=== PATIENT | female | born 1970 | race Caucasian/White ===

== ENCOUNTER 2017-01-15 01:44 | Emergency (ER) | payer SELFPAY ==
[~2017-01-15] VITALS: Ht 165.1 cm; Wt 64.6 kg
[~2017-01-15 01:44] MED LIST: AUGM875T PO; LORA10TA PO
[2017-01-15 01:52] VITALS: BP 131/90; PULSE 80; RESP 18; TEMP 97.9; O2SAT 98
[2017-01-15] MEDS ORDERED: SODIUM CHLOR 0.9% 1000 ML INJ 1,000 ML IV SCH (02:17)
--- NOTE | 2017-01-15 02:22 | PD ---
HPI Chief Complaint: GI Complaint Time Seen by Provider: 02:17 Travel History International Travel<30 days: No Contact w/Intl Traveler<30days: No Traveled to known affect area: No History of Present Illness HPI The patient is a 46-year-old female that complains of midline epigastric pain since 10 PM tonight. The pain radiates to the midline back and she denies any fever. She denies any melanotic or bloody stools. She denies any ulcer history. She states she took a Prilosec tonight. She does have a history of reflux esophagitis. She also has a history of lupus. [facility] Past Medical History Arthritis: Yes Autoimmune Disease: Yes (LUPUS) Cardiovascular Problems: Yes (RHEUMATIC FEVER) Diminished Hearing: No Tetanus Vaccination: < 5 Years Influenza Vaccination: No ?: Unknown LMP: One week ago : 5 Para: 4 Miscarriage: 1 Past Surgical History Oral Surgery: Yes (GUM SURGERY) Social History Alcohol Use: No Tobacco Use: Yes (4-6 cigarettes per day ) Substance Use: No Allergies-Medications (Allergen,Severity, Reaction): Coded Allergies: No Known Allergies (Verified , 12/27/15) Reported Meds & Prescriptions Reported Meds & Active Scripts Active Review of Systems Except as stated in HPI: all other systems reviewed are Neg Physical Exam Narrative GENERAL: The patient is alert, oriented 3 in moderate apparent distress with her midline epigastric discomfort. Her vital signs are normal. SKIN: Warm and dry. HEAD: Atraumatic. Normocephalic. EYES: Pupils equal and round. No scleral icterus. No injection or drainage. ENT: No nasal bleeding or discharge. Mucous membranes pink and moist. NECK: Trachea midline. No JVD. CARDIOVASCULAR: Regular rate and rhythm. No murmur appreciated. RESPIRATORY: No accessory muscle use. Clear to auscultation. Breath sounds equal bilaterally. GASTROINTESTINAL: Abdomen soft, with tenderness to direct palpation in the midline epigastrium, nondistended. Hepatic and splenic margins not palpable. No guarding or rebound is present. MUSCULOSKELETAL: No obvious deformities. No clubbing. No cyanosis. No edema. NEUROLOGICAL: Awake and alert. No obvious cranial nerve deficits. Motor grossly within normal limits. Normal speech. PSYCHIATRIC: Appropriate mood and affect; insight and judgment normal. Data Data Last Documented VS Vital Signs Date Time Temp Pulse Resp B/P Pulse Ox O2 Delivery O2 Flow Rate FiO2 2/25/17 01:52 97.9 80 18 131/90 98 Orders Complete Blood Count With Diff (01/15/17 02:17) Comprehensive Metabolic Panel (01/15/17 02:17) Lipase (01/15/17 02:17) Pantoprazole Inj (Protonix Inj) (01/15/17 02:30) Sodium Chlor 0.9% 1000 Ml Inj (Ns 1000 M (01/15/17 02:17) Sodium Chloride 0.9% Flush (Ns Flush) (01/15/17 02:30) Famotidine Inj (Pepcid Inj) (01/15/17 02:30) Al-Mag Hy-Si 40-40-4 Mg/Ml Liq (Mag-Al P (01/15/17 02:30) Lidocaine 2% Viscous (Xylocaine 2% Visco (01/15/17 02:45) Labs Laboratory Tests Test 01/15/17 02:26 White Blood Count 9.8 TH/MM3 Red Blood Count 4.46 MIL/MM3 Hemoglobin 13.7 GM/DL Hematocrit 40.4 % Mean Corpuscular Volume 90.7 FL Mean Corpuscular Hemoglobin 30.7 PG Mean Corpuscular Hemoglobin 33.9 % Concent Red Cell Distribution Width 12.6 % Platelet Count 252 TH/MM3 Mean Platelet Volume 9.1 FL Neutrophils (%) (Auto) 75.0 % Lymphocytes (%) (Auto) 17.8 % Monocytes (%) (Auto) 4.9 % Eosinophils (%) (Auto) 1.6 % Basophils (%) (Auto) 0.7 % Neutrophils # (Auto) 7.3 TH/MM3 Lymphocytes # (Auto) 1.7 TH/MM3 Monocytes # (Auto) 0.5 TH/MM3 Eosinophils # (Auto) 0.2 TH/MM3 Basophils # (Auto) 0.1 TH/MM3 CBC Comment DIFF FINAL Differential Comment Sodium Level 139 MEQ/L Potassium Level 3.8 MEQ/L Chloride Level 107 MEQ/L Carbon Dioxide Level 22.4 MEQ/L Anion Gap 10 MEQ/L Blood Urea Nitrogen 12 MG/DL Creatinine 0.58 MG/DL Estimat Glomerular Filtration 111 ML/MIN Rate Random Glucose 114 MG/DL Calcium Level 8.7 MG/DL Total Bilirubin 0.3 MG/DL Aspartate Amino Transf 12 U/L (AST/SGOT) Alanine Aminotransferase 21 U/L (ALT/SGPT) Alkaline Phosphatase 81 U/L Total Protein 6.6 GM/DL Albumin 3.4 GM/DL Lipase 174 U/L MDM Medical Decision Making Medical Screen Exam Complete: Yes Emergency Medical Condition: Yes Medical Record Reviewed: Yes Interpretation(s) The CBC is normal. The complete metabolic profile is normal. The lipase is normal. Differential Diagnosis Ulcer pain, reflux esophagitis, anemia, pancreatitis Narrative Course The patient has reflux esophagitis. She got fairly significant relief almost immediately with a GI cocktail. Plan: The patient will take Prilosec which she already has at home, liquid Maalox/Mylanta and is given a prescription for Phenergan for nausea. Diagnosis Primary Impression: Reflux esophagitis Additional Instructions: As we discussed, take Phenergan regularly, every 6 hours for nausea. After several days you can use Phenergan as an as needed drugs. Use liquid Maalox/ Mylanta and not Tums for reasons which we discussed. For the first few days take Prilosec twice daily and then back off to once a day. Follow-up with your primary care physician next week. Med/Other Pt SpecificInfo: Prescription(s) given Scripts Promethazine (Phenergan)25 Mg Tab25 Mg PO ONCE #1 TAB Ref 0 Prov:Carlos Mariscal MD 01/15/17 Disposition: 01 DISCHARGE HOME Condition: Stable Carlos Mariscal MD Jan 15, 2017 02:22
[2017-01-15] MEDS ORDERED: SODIUM CHLORIDE 0.9% FLUSH 5 ML FLUSH IVF PRN (02:30)
[2017-01-15] MEDS ORDERED: FAMOTIDINE 20 MG/2 ML VIAL IV PUSH ONE (02:30)
[2017-01-15] MEDS ORDERED: PANTOPRAZOLE SODIUM 40 MG VIAL IVP ONE (02:30)
[2017-01-15] MEDS ORDERED: ALUMINUM/MAGNESIUM/SIMETH 30 ML CUP PO ONE (02:30)
[2017-01-15 02:37] LABS: AUTOMATED NEUTROPHIL # 7.3 TH/MM3 (1.8-7.7); BASOPHIL # 0.1 TH/MM3 (0-0.2); BASOPHIL % 0.7 % (0.0-2.0); EOSINOPHIL # 0.2 TH/MM3 (0-0.4); EOSINOPHIL % 1.6 % (0.0-4.0); HEMATOCRIT 40.4 % (35.0-46.0); HEMO FLAGS DIFF FINAL; LYMPH % 17.8 % (9.0-44.0); LYMPHOCYTE # 1.7 TH/MM3 (1.0-4.8); MEAN CELL VOLUME 90.7 FL (80.0-100.0); MEAN CORPUSCULAR HEMOGLOBIN 30.7 PG (27.0-34.0); MEAN CORPUSCULAR HGB CONC 33.9 % (32.0-36.0); MONO % 4.9 % (0.0-8.0); PLATELET COUNT 252 TH/MM3 (150-450); RED BLOOD COUNT 4.46 MIL/MM3 (4.00-5.30); RED CELL DISTRIBUTION WIDTH 12.6 % (11.6-17.2); WHITE BLOOD COUNT 9.8 TH/MM3 (4.0-11.0)
[2017-01-15 02:44] LABS: CHLORIDE 107 MEQ/L (98-107); POTASSIUM 3.8 MEQ/L (3.5-5.1); SODIUM (NA) 139 MEQ/L (136-145)
[2017-01-15 02:45] VITALS: BP 142/88; PULSE 72; RESP 18; O2SAT 97
[2017-01-15] MEDS ORDERED: LIDOCAINE VISCOUS 2% SOLN 15 ML UDC PO ONE (02:45)
[2017-01-15 02:48] LABS: ANION GAP 10 MEQ/L (5-15); BICARBONATE 22.4 MEQ/L (21.0-32.0); BLOOD UREA NITROGEN 12 MG/DL (7-18)
[2017-01-15 02:51] LABS: ALT (GPT) 21 U/L (10-53); AST (GOT) 12 U/L (15-37); GLOMERULAR FILTRATION RATE 111 ML/MIN (>89)
[2017-01-15 02:52] LABS: TOTAL BILIRUBIN ADULT 0.3 MG/DL (0.2-1.0)
[2017-01-15 02:53] LABS: ALKALINE PHOSPHATASE 81 U/L (45-117)
[2017-01-15] MEDS ORDERED: PROM25TA5 PO (03:40)
== END 2017-01-15 04:07 | disposition home or self-care (01) ==
LOC: PHED 01:44
DX: K21.0 Gastro-esophageal reflux disease with esophagitis (principal)
CPT/HCPCS: 80053; 83690; 85025; 96361; 96374; 96375; 99284; C9113; J7030

== ENCOUNTER 2017-02-13 19:34 | Emergency (ER) | payer SELFPAY ==
[~2017-02-13 19:34] MED LIST changes: -AUGM875T PO; -LORA10TA PO; +PROM25TA5 PO
[2017-02-13 19:35] VITALS: BP 143/85; PULSE 95; RESP 16; TEMP 98; O2SAT 98
--- NOTE | 2017-02-15 12:49 | EKG ---
Date Performed: 02/13/2017 Time Performed: 19:54:57 PTAGE: 46 years EKG: Sinus rhythm NORMAL ECG PREVIOUS TRACING : 12/15/2012 18.45 Compared to prior tracing no significant change DOCTOR: Vincent Vargas Interpretating Date/Time 02/15/2017 12:48:08
== END 2017-02-13 20:14 | disposition left against medical advice (07) ==
LOC: NED 19:34
DX: R68.89 Other general symptoms and signs (principal)
CPT/HCPCS: 93005; 99281

== ENCOUNTER 2017-05-31 04:05 | Emergency (ER) | payer SELFPAY ==
[~2017-05-31] VITALS: Ht 165.1 cm; Wt 55.0 kg
[2017-05-31 04:08] VITALS: BP 172/94; PULSE 83; RESP 16; TEMP 97.7; O2SAT 98
[2017-05-31] MEDS ORDERED: VITA250T3 PO (04:18)
[2017-05-31] MEDS ORDERED: PRIL2.5P (04:18)
[2017-05-31 05:17] VITALS: RESP 18; O2SAT 98
--- NOTE | 2017-05-31 05:22 | PD ---
HPI Chief Complaint: Abdominal Pain Time Seen by Provider: 05:04 Travel History International Travel<30 days: No Contact w/Intl Traveler<30days: No Traveled to known affect area: No History of Present Illness HPI The patient is a 47 year old female who presents to the [facility] emergency department with a history of abdominal pain that began approximately 2 hours after eating studies BBQ at 6:30 PM last night. The patient reports that the pain had been constant and in the midepigastric area. She reports that the pain is a sharp and aching sensation. She reports that she has had this pain in the past 4 times previously. She reports that on the first occasion she was seen in the emergency department at [place] and was diagnosed with acid reflux. She reports that since then she did consistently take Prilosec, however this past week she discontinued this. She reports that she also changed her diet and has been eating more helpfully up until last night. She reports that she has a history of lupus and was taking ibuprofen regularly for body pains, however she discontinued this as well. She denies ever having endoscopy or colonoscopy. She reports that associated with this pain for the first time this evening she has had nausea and vomiting 1. She denies having any diarrhea. She last moved her bowels earlier this evening. She denies having any blood in her stool. Shortly after arriving in the emergency department, the patient reports that the pain has begun to resolve. I review systems, the patient denies any recent fevers, cough, congestion, neck pain, chest pain, shortness of breath, urinary symptoms, or neurologic symptoms. [facility] Past Medical History Narrative Medical The patient's past medical history is significant for lupus. She does have prednisone on hand to be taken when necessary with a lupus flare, however she has not had a lupus flare since November, history of rheumatic fever, history of arthritis, history of tobacco use. Arthritis: Yes Autoimmune Disease: Yes (LUPUS) Cardiovascular Problems: Yes (RHEUMATIC FEVER, HEART MURMUR ) Diminished Hearing: No ?: Not : 5 Para: 4 Miscarriage: 1 Past Surgical History Narrative Surgical The patient's past surgical history is significant for gum surgery. Oral Surgery: Yes (GUM SURGERY) Social History Alcohol Use: No Tobacco Use: Yes (4-6 cigarettes per day ) Substance Use: No Allergies-Medications (Allergen,Severity, Reaction): Coded Allergies: No Known Allergies (Verified , 12/27/15) Reported Meds & Prescriptions Reported Meds & Active Scripts Active Reported Prilosec (Omeprazole Magnesium) 2.5 Mg Pow Vitamin C (Ascorbic Acid) 250 Mg Tab 500 Mg PO DAILY Review of Systems Except as stated in HPI: all other systems reviewed are Neg General / Constitutional: No: Fever Eyes: No: Visual changes HENT: No: Headaches Cardiovascular: No: Chest Pain or Discomfort Respiratory: No: Shortness of Breath Gastrointestinal: Positive: Nausea, Vomiting, Abdominal Pain, Indigestion, No : Hematemesis, Hematochezia, Constipation, Changes in Bowel Habits, Loss of Appetite Genitourinary: No: Dysuria Musculoskeletal: No: Pain Skin: No Rash Neurologic: No: Weakness Psychiatric: No: Depression Endocrine: No: Polydipsia Hematologic/Lymphatic: No: Easy Bruising Physical Exam Narrative General: The patient is a well-developed well-nourished female in no acute distress, the pain has resolved just prior to my arriving in the room. Head and Neck exam: Head is normocephalic atraumatic. Eyes: EOMI, pupils are equal round and reactive to light. Nose: Midline septum with pink mucous membranes Mouth: Dentition unremarkable. Moist mucus membranes. Posterior oropharynx is not erythematous. No tonsillar hypertrophy. Uvula midline. Airway patent. Neck: No palpable lymphadenopathy. No nuchal rigidity. No thyromegaly. Cardiovascular: Regular rate and rhythm without murmurs, gallops, or rubs. Lungs: Clear to auscultation bilaterally. No wheezes, rhonchi, or rales. Abdomen: Soft, without tenderness to palpation in all 4 quadrants of the abdomen. No guarding, rebound, or rigidity. Normal bowel sounds are audible. No tenderness on palpation of McBurney's point. Negative [place] sign. Extremities: No clubbing, cyanosis, or edema. 2+ pulses in all 4 extremities. No calf tenderness on palpation. Back: No costovertebral angle tenderness to palpation. Neurologic Exam: Grossly nonfocal. Skin Exam: No rash noted. Intact skin that is warm and dry. Data Data Last Documented VS Vital Signs Date Time Temp Pulse Resp B/P Pulse Ox O2 Delivery O2 Flow Rate FiO2 05/31/17 05:17 18 98 Room Air 05/31/17 04:08 97.7 83 172/94 Orders Electrocardiogram (05/31/17 05:13) Complete Blood Count With Diff (05/31/17 05:13) Comprehensive Metabolic Panel (05/31/17 05:13) Creatine Kinase (Cpk) (05/31/17 05:13) Ckmb (Isoenzyme) Profile (05/31/17 05:13) Troponin I (05/31/17 05:13) Prothrombin Time / Inr (Pt) (05/31/17 05:13) Act Partial Throm Time (Ptt) (05/31/17 05:13) Lipase (05/31/17 05:13) Urinalysis - C+S If Indicated (05/31/17 05:13) Westergren Sedimentation Rate (05/31/17 05:13) Magnesium (Mg) (05/31/17 05:13) Chest, Single Ap (05/31/17 05:13) Iv Access Insert/Monitor (05/31/17 05:13) Ecg Monitoring (05/31/17 05:13) Oximetry (05/31/17 05:13) Ed Urine Pregnancytest Poc (05/31/17 05:13) Us Abdomen Gallbladder (05/31/17 05:24) Labs Laboratory Tests Test 05/31/17 05/31/17 04:30 05:15 White Blood Count 9.6 TH/MM3 Red Blood Count 4.44 MIL/MM3 Hemoglobin 14.0 GM/DL Hematocrit 40.8 % Mean Corpuscular Volume 91.9 FL Mean Corpuscular Hemoglobin 31.7 PG Mean Corpuscular Hemoglobin 34.4 % Concent Red Cell Distribution Width 13.3 % Platelet Count 247 TH/MM3 Mean Platelet Volume 9.8 FL Neutrophils (%) (Auto) 78.9 % Lymphocytes (%) (Auto) 13.5 % Monocytes (%) (Auto) 6.2 % Eosinophils (%) (Auto) 1.0 % Basophils (%) (Auto) 0.4 % Neutrophils # (Auto) 7.6 TH/MM3 Lymphocytes # (Auto) 1.3 TH/MM3 Monocytes # (Auto) 0.6 TH/MM3 Eosinophils # (Auto) 0.1 TH/MM3 Basophils # (Auto) 0.0 TH/MM3 CBC Comment DIFF FINAL Differential Comment Prothrombin Time 10.6 SEC Prothromb Time International 1.0 RATIO Ratio Activated Partial 30.6 SEC Thromboplast Time Sodium Level 138 MEQ/L Potassium Level 3.7 MEQ/L Chloride Level 105 MEQ/L Carbon Dioxide Level 25.2 MEQ/L Anion Gap 8 MEQ/L Blood Urea Nitrogen 13 MG/DL Creatinine 0.61 MG/DL Estimat Glomerular Filtration 105 ML/MIN Rate Random Glucose 92 MG/DL Calcium Level 8.7 MG/DL Magnesium Level 2.0 MG/DL Total Bilirubin 0.3 MG/DL Aspartate Amino Transf 12 U/L (AST/SGOT) Alanine Aminotransferase 17 U/L (ALT/SGPT) Alkaline Phosphatase 86 U/L Total Creatine Kinase 63 U/L Troponin I LESS THAN 0.02 NG/ML Total Protein 7.1 GM/DL Albumin 3.6 GM/DL Lipase 171 U/L Urine Color YELLOW Urine Turbidity HAZY Urine pH 5.5 Urine Specific [place] 1.029 Urine Protein TRACE mg/dL Urine Glucose (UA) NEG mg/dL Urine Ketones NEG mg/dL Urine Occult Blood NEG Urine Nitrite NEG Urine Bilirubin NEG Urine Urobilinogen LESS THAN 2.0 MG/DL Urine Leukocyte Esterase NEG Urine WBC 1 /hpf Urine Squamous Epithelial 7 /hpf Cells Urine Mucus FEW /lpf Microscopic Urinalysis Comment CULT NOT INDICATED MDM Medical Decision Making Medical Screen Exam Complete: Yes Emergency Medical Condition: Yes Medical Record Reviewed: Yes Differential Diagnosis Pancreatitis, versus biliary colic, versus peptic ulcer disease, versus acid reflux. Narrative Course During the course of the patients emergency department visit, the patients history, examination, and differential diagnosis were reviewed with the patient. The patient had IV access obtained and blood work sent for analysis. The patient was placed on a cardiac monitor technician with oximetry and blood pressure monitoring. An ultrasound of the gallbladder has been ordered. The patients laboratory studies were reviewed and remarkable for a white count of 9.6, hemoglobin 14, platelets 247 with 78.9 neutrophils, sedimentation rate is pending, CMP is unremarkable, CPK 63, troponin I less than 0.02, lipase 171. PT 10.6, PTT 30.6, urinalysis unremarkable. The patient refused to have an ECG done as she reports that she does not believe that this is related to her heart. Radiology studies were reviewed and remarkable for a chest x-ray that shows no acute cardiopulmonary disease. An ultrasound of the gallbladder has been ordered. The ultrasound is pending at the conclusion of my shift. The patient's case will be checked out to the oncoming emergency physician to disposition the patient based on the conclusion of her workup. Diagnosis Primary Impression: Intermittent epigastric abdominal pain Nanci Velasquez MD May 31, 2017 05:22
--- NOTE | 2017-05-31 05:36 | RADRPT ---
EXAM DATE/TIME: 05/31/2017 05:10 [facility] COMPARISON: No previous studies available for comparison. INDICATIONS : Chest pain, back pain, vomiting. MEDICAL HISTORY : None. SURGICAL HISTORY : None. ENCOUNTER: Initial ACUITY: 1 day PAIN SCORE: 5/10 LOCATION: Bilateral chest FINDINGS: A single view of the chest demonstrates the lungs to be symmetrically aerated without evidence of mas s, infiltrate or effusion. The cardiomediastinal contours are unremarkable. Osseous structures are intact. CONCLUSION: No evidence of acute cardiopulmonary disease. Tim Corado MD on May 31, 2017 at 5:35 Board Certified Radiologist. This report was verified electronically.
[2017-05-31 06:23] LABS: AUTOMATED NEUTROPHIL # 7.6 TH/MM3 (1.8-7.7); BASOPHIL % 0.4 % (0.0-2.0); EOSINOPHIL # 0.1 TH/MM3 (0-0.4); HEMATOCRIT 40.8 % (35.0-46.0); HEMO FLAGS DIFF FINAL; LYMPH % 13.5 % (9.0-44.0); LYMPHOCYTE # 1.3 TH/MM3 (1.0-4.8); MEAN CELL VOLUME 91.9 FL (80.0-100.0); MEAN CORPUSCULAR HEMOGLOBIN 31.7 PG (27.0-34.0); MEAN CORPUSCULAR HGB CONC 34.4 % (32.0-36.0); MONO % 6.2 % (0.0-8.0); NEUT % 78.9 % (16.0-70.0); PLATELET COUNT 247 TH/MM3 (150-450); RED BLOOD COUNT 4.44 MIL/MM3 (4.00-5.30); RED CELL DISTRIBUTION WIDTH 13.3 % (11.6-17.2); WHITE BLOOD COUNT 9.6 TH/MM3 (4.0-11.0)
[2017-05-31 06:39] LABS: APTT (PATIENT) 30.6 SEC (24.3-30.1); PROTHROMBIN TIME - PATIENT 10.6 SEC (9.8-11.6)
[2017-05-31 06:40] LABS: ALT (GPT) 17 U/L (10-53); ANION GAP 8 MEQ/L (5-15); AST (GOT) 12 U/L (15-37); BICARBONATE 25.2 MEQ/L (21.0-32.0); BLOOD UREA NITROGEN 13 MG/DL (7-18); CHLORIDE 105 MEQ/L (98-107); GLOMERULAR FILTRATION RATE 105 ML/MIN (>89); POTASSIUM 3.7 MEQ/L (3.5-5.1); SODIUM (NA) 138 MEQ/L (136-145)
[2017-05-31 06:45] LABS: ALKALINE PHOSPHATASE 86 U/L (45-117); TOTAL BILIRUBIN ADULT 0.3 MG/DL (0.2-1.0)
[2017-05-31 06:46] LABS: BLOOD, URINE NEG (NEG); COMMENT (UR) CULT NOT INDICATED; CULTURE IF INDICATED CULT NOT INDICATED; GLUCOSE,URINE NEG (NEG); KETONE, URINE NEG (NEG); MUCUS URINE FEW /lpf (OCC); NITRITE,URINE NEG (NEG); PH, URINE 5.5 (5.0-8.5); SQUAMOUS EPITHELIAL CELL URINE 7 /hpf (0-5); URINE COLOR YELLOW (YELLW/STRAW)
[2017-05-31 06:47] LABS: CREATINE KINASE 63 U/L (26-192)
--- NOTE | 2017-05-31 07:31 | PD ---
Physical Exam Date Seen by Provider: May 31, 2017 Time Seen by Provider: 07:00 Narrative Patient initially seen by Dr. Velasquez, please see previous notes for further details. Awaiting ultrasound for completion of exam. However, before she received ultrasound, states that she no longer wanted to wait, wanted to leave, will need to follow-up as an outpatient with primary care physician. She reports feeling improved. Return for any worsening in symptoms as needed. AMA: The risks of leaving against medical advice without further evaluation treatment were discussed with the patient. These risks include cardiac dysfunction, cardiac dysrhythmia, possible heart attack, possible stroke or . The patient indicated understanding of these risks and appeared to have the capacity to make this decision. Data Data Last Documented VS Vital Signs Date Time Temp Pulse Resp B/P Pulse Ox O2 Delivery O2 Flow Rate FiO2 05/31/17 05:17 18 98 Room Air 05/31/17 04:08 97.7 83 172/94 Orders Electrocardiogram (05/31/17 05:13) Complete Blood Count With Diff (05/31/17 05:13) Comprehensive Metabolic Panel (05/31/17 05:13) Creatine Kinase (Cpk) (05/31/17 05:13) Ckmb (Isoenzyme) Profile (05/31/17 05:13) Troponin I (05/31/17 05:13) Prothrombin Time / Inr (Pt) (05/31/17 05:13) Act Partial Throm Time (Ptt) (05/31/17 05:13) Lipase (05/31/17 05:13) Urinalysis - C+S If Indicated (05/31/17 05:13) Westergren Sedimentation Rate (05/31/17 05:13) Magnesium (Mg) (05/31/17 05:13) Chest, Single Ap (05/31/17 05:13) Iv Access Insert/Monitor (05/31/17 05:13) Ecg Monitoring (05/31/17 05:13) Oximetry (05/31/17 05:13) Ed Urine Pregnancytest Poc (05/31/17 05:13) Us Abdomen Gallbladder (05/31/17 05:24) Labs Laboratory Tests Test 05/31/17 05/31/17 04:30 05:15 White Blood Count 9.6 TH/MM3 Red Blood Count 4.44 MIL/MM3 Hemoglobin 14.0 GM/DL Hematocrit 40.8 % Mean Corpuscular Volume 91.9 FL Mean Corpuscular Hemoglobin 31.7 PG Mean Corpuscular Hemoglobin 34.4 % Concent Red Cell Distribution Width 13.3 % Platelet Count 247 TH/MM3 Mean Platelet Volume 9.8 FL Neutrophils (%) (Auto) 78.9 % Lymphocytes (%) (Auto) 13.5 % Monocytes (%) (Auto) 6.2 % Eosinophils (%) (Auto) 1.0 % Basophils (%) (Auto) 0.4 % Neutrophils # (Auto) 7.6 TH/MM3 Lymphocytes # (Auto) 1.3 TH/MM3 Monocytes # (Auto) 0.6 TH/MM3 Eosinophils # (Auto) 0.1 TH/MM3 Basophils # (Auto) 0.0 TH/MM3 CBC Comment DIFF FINAL Differential Comment Prothrombin Time 10.6 SEC Prothromb Time International 1.0 RATIO Ratio Activated Partial 30.6 SEC Thromboplast Time Sodium Level 138 MEQ/L Potassium Level 3.7 MEQ/L Chloride Level 105 MEQ/L Carbon Dioxide Level 25.2 MEQ/L Anion Gap 8 MEQ/L Blood Urea Nitrogen 13 MG/DL Creatinine 0.61 MG/DL Estimat Glomerular Filtration 105 ML/MIN Rate Random Glucose 92 MG/DL Calcium Level 8.7 MG/DL Magnesium Level 2.0 MG/DL Total Bilirubin 0.3 MG/DL Aspartate Amino Transf 12 U/L (AST/SGOT) Alanine Aminotransferase 17 U/L (ALT/SGPT) Alkaline Phosphatase 86 U/L Total Creatine Kinase 63 U/L Troponin I LESS THAN 0.02 NG/ML Total Protein 7.1 GM/DL Albumin 3.6 GM/DL Lipase 171 U/L Urine Color YELLOW Urine Turbidity HAZY Urine pH 5.5 Urine Specific [place] 1.029 Urine Protein TRACE mg/dL Urine Glucose (UA) NEG mg/dL Urine Ketones NEG mg/dL Urine Occult Blood NEG Urine Nitrite NEG Urine Bilirubin NEG Urine Urobilinogen LESS THAN 2.0 MG/DL Urine Leukocyte Esterase NEG Urine WBC 1 /hpf Urine Squamous Epithelial 7 /hpf Cells Urine Mucus FEW /lpf Microscopic Urinalysis Comment CULT NOT INDICATED MDM Medical Record Reviewed: Yes Supervised Visit with RICKY: No Diagnosis Primary Impression: Intermittent epigastric abdominal pain Patient Instructions: General Instructions Departure Forms: Tests/Procedures Disposition: 07 AGAINST MEDICAL ADVICE Condition: Stable Nato Lopez MD May 31, 2017 07:31
--- NOTE | 2017-05-31 08:12 | RADRPT ---
EXAM DATE/TIME: 05/31/2017 07:35 [facility] COMPARISON: No previous studies available for comparison. INDICATIONS : Right upper quadrant pain. MEDICAL HISTORY : Rheumatic fever. Heart murmur. Arthritis. Lupus. SURGICAL HISTORY : Gum surgery. ENCOUNTER: Initial ACUITY: 1 day PAIN SCORE: 5/10 LOCATION: Right upper quadrant MEASUREMENTS: LIVER: 13.0 cm length COMMON DUCT: 5 mm RIGHT KIDNEY: 11.9 x 4.4 x 5.8 cm FINDINGS: LIVER: Normal echotexture without focal lesion or ductal dilatation. COMMON DUCT: No intraluminal mass or stone visualized. GALLBLADDER: There is a single calcified stone in the gallbladder measuring up to 11 mm. There is gallbladder thickening measuring up to 5 mm with associated Z. pericholecystic fluid. Boxing Machine Operator does not report a Nix's sign. PANCREAS: The visualized portions are within normal limits. RIGHT KIDNEY: No evidence of hydronephrosis, stone, or mass. CONCLUSION: 1. Cholelithiasis with gallbladder wall thickening and trace pericholecystic fluid without significan t gallbladder distention. Overall, the findings are consistent with cholecystitis although in the abs ence of significant gallbladder distention this may be more chronic in etiology. Clinical correlation is recommended. Consider HIDA scan, if clinical uncertainty persists regarding acute cholecystitis, to evaluate for cystic duct patency. Gerson Sandoval MD on May 31, 2017 at 8:03 Board Certified Radiologist. This report was verified electronically.
== END 2017-05-31 07:23 | disposition left against medical advice (07) ==
LOC: NEPC 04:05
DX: R10.13 Epigastric pain (principal); R11.2 Nausea with vomiting, unspecified; M32.9 Systemic lupus erythematosus, unspecified
CPT/HCPCS: 71010; 76705; 80053; 81001; 82550; 83690; 83735; 84484; 84703; 85025; 85610; 85652; 85730

== ENCOUNTER 2017-05-31 07:26 | Emergency (ER) | payer SELFPAY ==
[~2017-05-31] VITALS: Ht 165.1 cm; Wt 55.0 kg
[~2017-05-31 07:26] MED LIST changes: +PRIL2.5P; +VITA250T3 PO
[2017-05-31 07:29] VITALS: BP 133/81; PULSE 80; RESP 16; TEMP 98.1; O2SAT 99
--- NOTE | 2017-05-31 08:20 | PD ---
HPI Chief Complaint: Abdominal Pain Time Seen by Provider: 08:17 Travel History International Travel<30 days: No Contact w/Intl Traveler<30days: No Traveled to known affect area: No History of Present Illness HPI Patient seen earlier and had just left AMA, went out to get her stuff and came back again. Please see note from previous visit for further details. Here because of ongoing problems with intermittent abdominal pains and nausea. Worse with eating fatty foods. PFSH Past Medical History Arthritis: Yes Autoimmune Disease: Yes (LUPUS) Cardiovascular Problems: Yes (HEART MURMUR, RHEUMATIC FEVER) Diminished Hearing: No ?: Not LMP: 05/18/17 : 5 Para: 4 Miscarriage: 1 Past Surgical History Oral Surgery: Yes (GUM SURGERY) Social History Alcohol Use: No Tobacco Use: Yes (4-6 cigarettes per day ) Substance Use: No Allergies-Medications (Allergen,Severity, Reaction): Coded Allergies: No Known Allergies (Verified , 12/27/15) Reported Meds & Prescriptions Reported Meds & Active Scripts Active Reported Prilosec (Omeprazole Magnesium) 2.5 Mg Pow Vitamin C (Ascorbic Acid) 250 Mg Tab 500 Mg PO DAILY Review of Systems Except as stated in HPI: all other systems reviewed are Neg Physical Exam Narrative GENERAL: Well-nourished, well-developed middle age white female patient in mild distress. SKIN: Focused skin assessment warm/dry. HEAD: Normocephalic. EYES: No scleral icterus. No injection or drainage. NECK: Supple, trachea midline. No JVD or lymphadenopathy. CARDIOVASCULAR: Regular rate and rhythm without murmurs, gallops, or rubs. RESPIRATORY: Breath sounds equal bilaterally. No accessory muscle use. GASTROINTESTINAL: Abdomen soft, mild epigastric tenderness without guarding or rebound, nondistended. Negative for Nix's sign. MUSCULOSKELETAL: No cyanosis, or edema. BACK: Nontender without obvious deformity. No CVA tenderness. Data Data Last Documented VS Vital Signs Date Time Temp Pulse Resp B/P Pulse Ox O2 Delivery O2 Flow Rate FiO2 05/31/17 07:43 18 05/31/17 07:29 98.1 80 133/81 99 Room Air MDM Medical Decision Making Medical Screen Exam Complete: Yes Emergency Medical Condition: Yes Medical Record Reviewed: Yes Differential Diagnosis Gastritis versus cholecystitis versus gastroenteritis Narrative Course Ultrasound the gallbladder was done which shows some signs of chronic wall thickening and possibly chronic cholecystitis. There is no other signs of acute processes. Palpation of the patient's abdomen shows that is fairly benign with no right upper quadrant tenderness. At this point, I had a discussion with the patient about obtaining further studies and the patient states that she does not want to get her gallbladder taken out, wants to go the natural route, and would prefer outpatient follow-up and treatment. She is fairly asymptomatic currently. She should return for any worsening in pain, fevers, and as needed. The plan has been discussed with her and she states understanding. Diagnosis Primary Impression: Intermittent epigastric abdominal pain Disposition: DISCHARGE HOME Condition: Stable Nato Lopez MD May 31, 2017 08:20
== END 2017-05-31 09:05 | disposition home or self-care (01) ==
LOC: NEPC 07:26
DX: R10.13 Epigastric pain (principal)
CPT/HCPCS: 99281

== ENCOUNTER 2017-06-01 04:44 | Observation (INO) | payer SELFPAY ==
[~2017-06-01] VITALS: Ht 165.1 cm; Wt 55.0 kg
[~2017-06-01 04:44] MED LIST changes: -PROM25TA5 PO
[2017-06-01 04:45] VITALS: BP 137/94; PULSE 97; RESP 18; TEMP 97.9; O2SAT 98
[2017-06-01 05:20] VITALS: RESP 18; O2SAT 98
--- NOTE | 2017-06-01 05:29 | PD ---
HPI Chief Complaint: Abdominal Pain Time Seen by Provider: 04:59 Travel History International Travel<30 days: No Contact w/Intl Traveler<30days: No Traveled to known affect area: No History of Present Illness HPI The patient is a 47 year old female who presents to the [facility] emergency department with a history of being seen in the emergency department by me yesterday related to abdominal pain. While she was in the emergency Department her abdominal pain had subsided. The patient underwent an evaluation with blood work that was unremarkable, however she was concerned about the possibility of having gallstones or gallbladder disease, therefore an ultrasound was ordered. The patient has reportedly had multiple episodes of midepigastric and right upper quadrant abdominal pain since December 2016. The patient's case was transferred over to Dr. Quinones as the ultrasound was pending at the conclusion of my shift yesterday. The ultrasound showed cholelithiasis with gallbladder wall thickening and trace pericholecystic fluid without significant gallbladder distention. The radiologist wrote that overall the findings were consistent with cholecystitis although the absence of significant gallbladder distention could represent that this is more chronic in nature. As the patient had no significant abdominal discomfort the patient was discharged home to follow-up with a local primary care physician. The patient additionally had reported to both me and Dr. Quinones later during her evaluation that she preferred to manage this without surgery, preferably with holistic and herbal remedies. Since her discharge, the patient has had a recurrence of the pain that began in the afternoon. The patient reports that it began shortly after she ate 5 pretzels. She reports that the pain has persisted since then, waxing and waning severity. She reports that the pain is in the midepigastric and right upper quadrant and radiates straight through to the back. She reports having nausea and vomiting approximate 4 times yesterday. She reports that she's had diarrhea at least 10 times over the last 24 hours. She denies having any known fevers. Otherwise on review of systems, she denies any cough, congestion, neck pain, chest pain, shortness of breath, urinary symptoms, or neurologic symptoms. [facility] Past Medical History Narrative Medical The patient's past medical history is significant for lupus with her last lupus flare in November of this year, history of rheumatic fever, history of arthritis , history of tobacco use. Arthritis: Yes (RA) Autoimmune Disease: Yes (LUPUS) Cardiovascular Problems: Yes (HEART MURMUR, RHEUMATIC FEVER) Diminished Hearing: No GERD: Yes ?: Not : 5 Para: 4 Miscarriage: 1 Past Surgical History Narrative Surgical The patient's past surgical history is significant for having gum surgery. Oral Surgery: Yes (GUM SURGERY) Social History Alcohol Use: No Tobacco Use: Yes (4-6 cigarettes per day ) Substance Use: No Allergies-Medications (Allergen,Severity, Reaction): Coded Allergies: No Known Allergies (Verified , 06/01/17) Reported Meds & Prescriptions Reported Meds & Active Scripts Active Reported Prilosec (Omeprazole Magnesium) 2.5 Mg Pow Vitamin C (Ascorbic Acid) 250 Mg Tab 500 Mg PO DAILY Review of Systems Except as stated in HPI: all other systems reviewed are Neg General / Constitutional: No: Fever Eyes: No: Visual changes HENT: No: Headaches Cardiovascular: No: Chest Pain or Discomfort Respiratory: No: Shortness of Breath Gastrointestinal: Positive: Nausea, Vomiting, Diarrhea, Abdominal Pain, Changes in Bowel Habits, Indigestion, No: Hematemesis, Hematochezia, Loss of Appetite Genitourinary: No: Dysuria Musculoskeletal: No: Pain Skin: No Rash Neurologic: No: Weakness Psychiatric: No: Depression Endocrine: No: Polydipsia Hematologic/Lymphatic: No: Easy Bruising Physical Exam Narrative General: The patient is a well-developed well-nourished female in no acute distress. Head and Neck exam: Head is normocephalic atraumatic. Eyes: EOMI, pupils are equal round and reactive to light. Nose: Midline septum with pink mucous membranes Mouth: Dentition unremarkable. Moist mucus membranes. Posterior oropharynx is not erythematous. No tonsillar hypertrophy. Uvula midline. Airway patent. Neck: No palpable lymphadenopathy. No nuchal rigidity. No thyromegaly. Cardiovascular: Regular rate and rhythm without murmurs, gallops, or rubs. Lungs: Clear to auscultation bilaterally. No wheezes, rhonchi, or rales. Abdomen: Soft, with midepigastric and right upper quadrant abdominal pain. No guarding, rebound, or rigidity. The patient has a positive Nix sign. No tenderness on palpation of McBurney's point. Normal bowel sounds are audible. Extremities: No clubbing, cyanosis, or edema. 2+ pulses in all 4 extremities. Back: No spinous process tenderness to palpation. No costovertebral angle tenderness to palpation. Neurologic Exam: Grossly nonfocal. Skin Exam: No rash noted. Intact skin that is warm and dry. Data Data Last Documented VS Vital Signs Date Time Temp Pulse Resp B/P Pulse Ox O2 Delivery O2 Flow Rate FiO2 06/01/17 05:20 18 98 06/01/17 04:45 97.9 97 137/94 Room Air Orders Complete Blood Count With Diff (06/01/17 05:17) Comprehensive Metabolic Panel (06/01/17 05:17) C-Reactive Protein (Crp) (06/01/17 05:17) Lipase (06/01/17 05:17) Iv Access Insert/Monitor (06/01/17 05:17) Ecg Monitoring (06/01/17 05:17) Oximetry (06/01/17 05:17) Ed Urine Pregnancytest Poc (06/01/17 05:17) Morphine Inj (Morphine Inj) (06/01/17 05:30) Ondansetron Inj (Zofran Inj) (06/01/17 05:30) Ct Abd/Pel W Iv Contrast(Rout) (06/01/17 07:03) Labs Laboratory Tests Test 06/01/17 05:10 White Blood Count 7.7 TH/MM3 Red Blood Count 4.56 MIL/MM3 Hemoglobin 14.4 GM/DL Hematocrit 42.0 % Mean Corpuscular Volume 92.1 FL Mean Corpuscular Hemoglobin 31.5 PG Mean Corpuscular Hemoglobin 34.3 % Concent Red Cell Distribution Width 13.3 % Platelet Count 237 TH/MM3 Mean Platelet Volume 9.7 FL Neutrophils (%) (Auto) 73.6 % Lymphocytes (%) (Auto) 17.7 % Monocytes (%) (Auto) 6.7 % Eosinophils (%) (Auto) 1.4 % Basophils (%) (Auto) 0.6 % Neutrophils # (Auto) 5.7 TH/MM3 Lymphocytes # (Auto) 1.4 TH/MM3 Monocytes # (Auto) 0.5 TH/MM3 Eosinophils # (Auto) 0.1 TH/MM3 Basophils # (Auto) 0.0 TH/MM3 CBC Comment DIFF FINAL Differential Comment Sodium Level 137 MEQ/L Potassium Level 3.5 MEQ/L Chloride Level 105 MEQ/L Carbon Dioxide Level 22.9 MEQ/L Anion Gap 9 MEQ/L Blood Urea Nitrogen 9 MG/DL Creatinine 0.67 MG/DL Estimat Glomerular Filtration 94 ML/MIN Rate Random Glucose 89 MG/DL Calcium Level 8.7 MG/DL Total Bilirubin 1.1 MG/DL Aspartate Amino Transf 224 U/L (AST/SGOT) Alanine Aminotransferase 230 U/L (ALT/SGPT) Alkaline Phosphatase 103 U/L C-Reactive Protein 0.57 MG/DL Total Protein 6.7 GM/DL Albumin 3.5 GM/DL Lipase 103 U/L [facility] Medical Decision Making Medical Screen Exam Complete: Yes Emergency Medical Condition: Yes Medical Record Reviewed: Yes Differential Diagnosis Acute cholecystitis, versus biliary colic, versus pancreatitis Narrative Course During the course of the patients emergency department visit, the patients history, examination, and differential diagnosis were reviewed with the patient. The patient had IV access obtained and blood work sent for analysis. A shunt was placed on a lunchroom monitor with oximetry and blood pressure monitoring. The patient was initially provided normal saline 1 L IV fluid bolus, morphine 2 mg IV, Zofran 4 mg IV. The patients laboratory studies were reviewed and remarkable for a white count of 7.7, hemoglobin 14.4, platelets 237 with 73.6 neutrophils. the patient's CMP and lipase are pending at the conclusion of my shift. The patient's case will be checked out to the oncoming emergency physician for disposition after labs are resulted. I anticipate that the patient will be admitted for evaluation by the general surgeon for acute cholecystitis. Diagnosis Primary Impression: Acute cholecystitis Nanci Velasquez MD Jun 01, 2017 05:29
[2017-06-01] MEDS ORDERED: MORPHINE SULFATE 4 MG/ML INJ IV PUSH ONE (05:30)
[2017-06-01] MEDS ORDERED: ONDANSETRON HCL 4 MG/2 ML VIAL IV PUSH ONE ×2 (05:30→15:11)
[2017-06-01 06:29] LABS: AUTOMATED NEUTROPHIL # 5.7 TH/MM3 (1.8-7.7); BASOPHIL % 0.6 % (0.0-2.0); EOSINOPHIL # 0.1 TH/MM3 (0-0.4); EOSINOPHIL % 1.4 % (0.0-4.0); HEMO FLAGS DIFF FINAL; LYMPH % 17.7 % (9.0-44.0); LYMPHOCYTE # 1.4 TH/MM3 (1.0-4.8); MEAN CELL VOLUME 92.1 FL (80.0-100.0); MEAN CORPUSCULAR HEMOGLOBIN 31.5 PG (27.0-34.0); MEAN CORPUSCULAR HGB CONC 34.3 % (32.0-36.0); MONO % 6.7 % (0.0-8.0); NEUT % 73.6 % (16.0-70.0); PLATELET COUNT 237 TH/MM3 (150-450); RED BLOOD COUNT 4.56 MIL/MM3 (4.00-5.30); RED CELL DISTRIBUTION WIDTH 13.3 % (11.6-17.2); WHITE BLOOD COUNT 7.7 TH/MM3 (4.0-11.0)
[2017-06-01 07:03] LABS: ALKALINE PHOSPHATASE 103 U/L (45-117); ALT (GPT) 230 U/L (10-53); ANION GAP 9 MEQ/L (5-15); AST (GOT) 224 U/L (15-37); BICARBONATE 22.9 MEQ/L (21.0-32.0); BLOOD UREA NITROGEN 9 MG/DL (7-18); CHLORIDE 105 MEQ/L (98-107); GLOMERULAR FILTRATION RATE 94 ML/MIN (>89); POTASSIUM 3.5 MEQ/L (3.5-5.1); SODIUM (NA) 137 MEQ/L (136-145); TOTAL BILIRUBIN ADULT 1.1 MG/DL (0.2-1.0)
--- NOTE | 2017-06-01 07:25 | PD ---
Data Data Last Documented VS Vital Signs Date Time Temp Pulse Resp B/P Pulse Ox O2 Delivery O2 Flow Rate FiO2 06/01/17 05:20 18 98 06/01/17 04:45 97.9 97 137/94 Room Air Orders Complete Blood Count With Diff (06/01/17 05:17) Comprehensive Metabolic Panel (06/01/17 05:17) C-Reactive Protein (Crp) (06/01/17 05:17) Lipase (06/01/17 05:17) Iv Access Insert/Monitor (06/01/17 05:17) Ecg Monitoring (06/01/17 05:17) Oximetry (06/01/17 05:17) Ed Urine Pregnancytest Poc (06/01/17 05:17) Morphine Inj (Morphine Inj) (06/01/17 05:30) Ondansetron Inj (Zofran Inj) (06/01/17 05:30) Consult General Surgery (06/01/17 ) (Hub Use Only)Inp Phy Cons/Ref (06/01/17 ) Labs Laboratory Tests Test 06/01/17 05:10 White Blood Count 7.7 TH/MM3 Red Blood Count 4.56 MIL/MM3 Hemoglobin 14.4 GM/DL Hematocrit 42.0 % Mean Corpuscular Volume 92.1 FL Mean Corpuscular Hemoglobin 31.5 PG Mean Corpuscular Hemoglobin 34.3 % Concent Red Cell Distribution Width 13.3 % Platelet Count 237 TH/MM3 Mean Platelet Volume 9.7 FL Neutrophils (%) (Auto) 73.6 % Lymphocytes (%) (Auto) 17.7 % Monocytes (%) (Auto) 6.7 % Eosinophils (%) (Auto) 1.4 % Basophils (%) (Auto) 0.6 % Neutrophils # (Auto) 5.7 TH/MM3 Lymphocytes # (Auto) 1.4 TH/MM3 Monocytes # (Auto) 0.5 TH/MM3 Eosinophils # (Auto) 0.1 TH/MM3 Basophils # (Auto) 0.0 TH/MM3 CBC Comment DIFF FINAL Differential Comment Sodium Level 137 MEQ/L Potassium Level 3.5 MEQ/L Chloride Level 105 MEQ/L Carbon Dioxide Level 22.9 MEQ/L Anion Gap 9 MEQ/L Blood Urea Nitrogen 9 MG/DL Creatinine 0.67 MG/DL Estimat Glomerular Filtration 94 ML/MIN Rate Random Glucose 89 MG/DL Calcium Level 8.7 MG/DL Total Bilirubin 1.1 MG/DL Aspartate Amino Transf 224 U/L (AST/SGOT) Alanine Aminotransferase 230 U/L (ALT/SGPT) Alkaline Phosphatase 103 U/L C-Reactive Protein 0.57 MG/DL Total Protein 6.7 GM/DL Albumin 3.5 GM/DL Lipase 103 U/L [facility] Supervised Visit with RICKY: No Narrative Course Patient care assumed from Dr. Velasquez at 07 100: This is a 47-year-old female who presents emergency department for the second time in 2 days for evaluation of epigastric abdominal pain. She was evaluated yesterday by to providers and was ultimately diagnosed with cholecystitis but the patient preferred to treat herself nonoperatively and she was discharged home. Apparently her primary care physician had made a referral to Dr. Guerra recently. Extended history the patient should been having some nausea vomiting and epigastric pain postprandial for the past few weeks, is been gradually getting worse to the point where she is unable tolerate by mouth. She states that her pain got significantly worse last night so she decided to come and be seen and wanted to have her gallbladder taken out. Review of her lab work show that her liver enzymes and become significantly more elevated in the past 24 hours, bilirubin is also mildly elevated, alkaline phosphatase is negative however. The patient denies a heavy drinking history or history of hepatitis. Physical exam the patient does have some minimal tenderness in the right upper quadrant however Nix sign is positive. Reviewed the go blood or ultrasound from yesterday and certainly does show pericholecystic fluid and some gallbladder wall thickening. The results were then discussed with Dr. Miranda is on-call for surgery who will see in consultation. Patient states she is fairly comfortable now and declines any nausea or pain medicine, and instructed her to remain nothing by mouth until seen by Dr. Miranda. Patient seen and examined by Dr. Miranda, he agrees patient consistent with cholecystitis plan is for surgery later today. We'll be observation status under his service. Diagnosis Primary Impression: Acute cholecystitis Admitting Information Admitting Physician Requests: Admit Condition: Stable Prakash Covington MD Jun 01, 2017 07:25
[2017-06-01] MEDS ORDERED: SODIUM CHLORIDE 0.9% FLUSH 10 ML FLUSH IV FLUSH PRN (10:00)
[2017-06-01] MEDS ORDERED: BUPIVACAINE HCL PF 0.5% 30 ML VIAL ONE (10:40)
[2017-06-01] MEDS ORDERED: metroNIDAZOLE 500 MG INJ 100 ML IV ONE (10:45)
[2017-06-01] MEDS ORDERED: LEVOFLOXACIN 500 MG PREMIX INJ 100 ML IV ONE (10:48)
[2017-06-01] MEDS ORDERED: ACETAMINOPHEN 1000 MG/100 ML VIAL IV ONE (11:09)
[2017-06-01] MEDS ORDERED: FAMOTIDINE 20 MG/2 ML VIAL ONE (11:10)
[2017-06-01] MEDS ORDERED: MIDAZOLAM HCL 2 MG/2 ML VIAL ONE (11:10)
--- NOTE | 2017-06-01 11:22 | MH ---
cc: JOSLYN SCHULTZ DATE OF ADMISSION 06/01/2017 CHIEF COMPLAINT Right upper quadrant abdominal pain. HISTORY OF PRESENT ILLNESS Ms. Blanchard is a very pleasant 47-year-old female was has been to the emergency department multiple times with complaints of epigastric and right upper quadrant abdominal pain. She was diagnosed with gallstones and advised to follow up with a surgeon. The patient wanted to avoid surgery and attempted to manage her symptoms with diet and lifestyle modification. Her symptoms persisted. She was in the emergency department on Tuesday night with abdominal pain and was worked up and again felt to have acute cholecystitis. The patient felt better and was discharged home. She then returned the following day with recurrent right upper quadrant abdominal pain. On laboratory evaluation. she was noted have a bump in her LFTs and again ultrasound confirmed gallstones with a thickened gallbladder wall all consistent with acute cholecystitis. Surgical consultation was requested. The patient was initially seen and evaluate Dr. Justice Miranda who asked if I could assist in her care due to his unavailability later today. I went to see the patient in the same day surgery holding area and discussed her case with her. The patient reports nausea and vomiting. She denies fever or chills. She denies any jaundice. She reports multiple episodes of epigastric and right upper quadrant abdominal pain. This pain is mainly after she eats a meal. PAST MEDICAL HISTORY 1. Lupus 2. She has also had rheumatic fever. PAST SURGICAL HISTORY She had some surgery on her gums. She denies any previous abdominal surgery. MEDICATIONS Her medication list includes: 1. Prilosec 2. Vitamin C ALLERGIES She has NO KNOWN DRUG ALLERGIES. SOCIAL HISTORY She does not drink, she occasionally smokes cigarettes on a social basis. She lives here locally with her . FAMILY HISTORY Her family history is noncontributory. PHYSICAL EXAMINATION VITAL SIGNS: Temperature is 97, pulse 97, blood pressure 130/90, respiratory rate 20. GENERAL: This is a pleasant thin middle-aged female in no apparent stress. HEENT: Pupils equal site. Sclerae are white. Oropharynx is clear and moist. NECK: Supple. No masses. LUNGS: Clear to auscultation bilaterally. HEART SOUNDS: S1, S2 no murmur. ABDOMEN: Soft, tender in the right upper quadrant. No guarding is noted. Negative Nix sign. Overall abdomen soft with good bowel sounds. EXTREMITIES: Free range of motion x4. NEUROLOGIC: Alert and oriented x3. LABORATORY DATA White blood cell count 7, hemoglobin 14, platelet count is 237. Electrolytes are all within normal limits. LFTs slightly elevated bilirubin 1.1, AST 224, ALT 230, alkaline phos 103. C-reactive protein 57, lipase 103. Ultrasound demonstrates gallbladder wall thickening with gallstones and a slight amount of pericholecystic fluid all consistent with acute cholecystitis. IMPRESSION Acute cholecystitis PLAN The risks and benefits of open and laparoscopic cholecystectomy was discussed with her in detail in the same-day surgery area. The patient is eager to proceed. She understands the risks of the surgery and expressed understanding and signed consents. MD DANI Soto/MARI /11:11 AM /11:18 AM
[2017-06-01] MEDS ORDERED: BUPIVACAINE/EPINEPHRINE 0.25% 50 ML VIAL INFIL ONE (11:33)
[2017-06-01] MEDS ORDERED: PIPERACIL-TAZO 3.375 GM PREMIX 50 ML IV SCH (12:00)
[2017-06-01] MEDS ORDERED: DO NOT ADM ANY ANTICOAGULANT DRUGS PRN (12:24)
[2017-06-01] MEDS ORDERED: METOPROLOL TARTRATE 25 MG TAB PO PRN (12:30)
[2017-06-01] MEDS ORDERED: CHLORHEXIDINE GLUCONATE 2 % 1 PACK (2 CLOTHS) TOPICAL PRN (12:30)
[2017-06-01] MEDS ORDERED: LACTATED RINGER'S 1000 ML IV PRN (12:30)
[2017-06-01] MEDS ORDERED: INSULIN HUMAN REGULAR 1,000 UNITS/10 ML VIAL SQ PRN (12:30)
[2017-06-01] MEDS ORDERED: SODIUM CHLORID 0.9% 500 ML IV PRN (12:30)
[2017-06-01] MEDS ORDERED: POVIDONE IODINE 5% (ANTISEPSIS KIT) 4 APPLICATIONS EACH NARE PRN (12:30)
[2017-06-01] MEDS ORDERED: *ONDANSETRON 4 MG VIAL PERIprocedural Use ONLY ONE (12:36)
[2017-06-01] MEDS ORDERED: *morphine SULFATE 8 MG/ML PERIprocedure ONLY ONE (12:36)
[2017-06-01] MEDS: SODIUM CHLOR 0.9% 1000 ML INJ 1,000 ML IV SCH ×2 (12:45→18:08)
[2017-06-01] MEDS ORDERED: fentaNYL CITRATE 250 MCG/5 ML AMP ONE (12:57)
[2017-06-01] MEDS ORDERED: LACTATED RINGER'S 1000 ML INJ 1,000 ML IV SCH (13:00)
[2017-06-01] MEDS ORDERED: ACETAMINOPHEN/HYDROcodone 325 MG/5 MG TAB PO PRN ×2 (13:00)
[2017-06-01] MEDS ORDERED: ONDANSETRON HCL 4 MG/2 ML VIAL IV PRN (13:00)
[2017-06-01] MEDS ORDERED: NALOXONE HCL 0.4 MG/ML AMP IV PRN (13:00)
[2017-06-01] MEDS ORDERED: diphenhydrAMINE HCL 25 MG CAP PO PRN (13:00)
[2017-06-01] MEDS ORDERED: MORPHINE SULFATE 4 MG/ML INJ IV PUSH PRN (13:00)
[2017-06-01] MEDS ORDERED: Post-op Orders (for Pharmacy) MISC XX ONE (13:00)
[2017-06-01] MEDS ORDERED: SODIUM CHLORIDE 0.9% FLUSH 5 ML FLUSH IVF PRN (13:00)
[2017-06-01] MEDS ORDERED: KETOROLAC TROMETHAMINE 30 MG/ML (IVP) VIAL IVP PRN (13:00)
--- NOTE | 2017-06-01 13:14 | MP ---
cc: JOSLYN SCHULTZ M.D. DATE OF SURGERY 06/01/2017 PREOPERATIVE DIAGNOSIS Acute cholecystitis POSTOPERATIVE DIAGNOSIS Acute cholecystitis PROCEDURE PERFORMED Laparoscopic cholecystectomy SURGEON Joslyn Schultz MD ANESTHESIA General endotracheal COMPLICATIONS None INDICATION FOR THE PROCEDURE Ms. Blanchard is a pleasant 39-year-old female who has had multiple bouts of epigastric right upper quadrant abdominal pain. She has been to the emergency room twice in the last two days with this episode. She had an ultrasound which demonstrated gallstones, gallbladder wall thickening and pericholecystic fluid. She was diagnosed with acute cholecystitis and admitted. She was offered immediate cholecystectomy. The risks and benefits of open and laparoscopic cholecystectomy were discussed with her and she was agreeable. DETAILS The patient was identified, brought to the operating room, placed supine on the operating table. After adequate general endotracheal anesthesia was achieved, the abdomen was prepped and draped in standard surgical fashion. The infraumbilical space anesthetized with quarter percent Marcaine. Infraumbilical incision was made. Dissection was carried down through the subcutaneous tissue to the midline fascia. The midline fascia was then incised sharply. A finger was then placed in the peritoneal cavity without difficulty. Blunt balloon trocar was inserted and the abdomen was insufflated to 15 mm using CO2 gas. Next, two 5 mm trocars were placed in the right upper quadrant after anesthetizing the skin and subcutaneous tissue with quarter percent Marcaine. Attention was directed to the right upper quadrant where a distended edematous gallbladder was identified. The gallbladder was retracted cephalad. Omental and duodenal adhesions were carefully taken down with sharp dissection in order to free the gallbladder completely. Once the gallbladder was freed up, the neck was carefully dissected. Cystic duct was clearly seen entering the neck of the gallbladder. It was confirmed in two planes. It was then clipped twice proximally, once distally and then divided. Next identified was the cystic node. There was a small vessel bleeding off the cystic node and this was clipped once with a 5 mm clip and the bleeding ceased. Dissection then proceeded up a little more proximally, identifying the cystic artery. The cystic artery was identified in two planes and seen entering just at the neck of the gallbladder. It was clipped twice proximally, once distally and then divided. Gallbladder was then dissected out of the hepatic fossa using electrocautery Bovie. Gallbladder was placed in the Endopouch bag and brought out the infraumbilical port. The gallbladder was inspected, found to be thickened and contained multiple stones. Clips were then placed on the cystic duct stump without evidence of leakage of bile. Gallbladder was sent to pathology for analysis. Next, the right upper quadrant was inspected. Several small bleeding points in the liver were controlled with electrocautery Bovie. Clips were carefully inspected on the cystic artery and cystic duct stump, as well as the cystic node. There was no evidence of bleeding and no leakage of bile from the cystic duct stump. Abdominal cavity was rinsed out normal saline solution. Effluent was noted to be clear. The gallbladder bed and clips were reinspected a second time and again there was no evidence of bleeding and no evidence of leakage of bile. 0.25% Marcaine was injected into the operative field. The omentum was placed in the infrahepatic space and the abdomen was carefully desufflated. All trocars removed under direct vision. The midline fascia was repaired with 0 Vicryl in [id number] fashion. Skin was closed with 4-0 Vicryl. The patient tolerated the procedure well, was awakened and brought to recovery in stable condition. MD DANI Soto/MARI /12:59 PM /1:09 PM
[2017-06-01] MEDS ORDERED: *PROMETHAZINE 25 MG/ML VIAL PERIprocedural use ONLY ONE (13:23)
[2017-06-01] MEDS ORDERED: PROPOFOL 200 MG/20 ML AMP IV ONE (15:11)
[2017-06-01] MEDS ORDERED: NEOSTIGMINE 3 MG/3 ML SYR IV ONE (15:11)
[2017-06-01] MEDS ORDERED: KETOROLAC TROMETHAMINE 60 MG/2 ML (IM) VIAL IM ONE (15:11)
[2017-06-01 16:00] VITALS: BP 110/66; PULSE 69; RESP 17; TEMP 95.7; O2SAT 96
[2017-06-01 20:00] VITALS: BP 105/61; PULSE 60; RESP 18; TEMP 97.8; O2SAT 97
[2017-06-01 20:26] VITALS: O2SAT 96
[2017-06-01] MEDS ORDERED: SODIUM CHLORIDE 0.9% FLUSH 5 ML FLUSH IVF SCH (21:00)
[2017-06-01] MEDS ORDERED: SODIUM CHLORIDE 0.9% FLUSH 10 ML FLUSH IV FLUSH SCH (21:00)
== END 2017-06-01 21:46 | disposition home or self-care (01) ==
LOC: NEPE 04:44 → NEDA 09:00 → N07B 15:18
PROVIDERS: ADMIT Surgery; ATTEND Surgery
PROC: 0FT44ZZ Resection of Gallbladder, Percutaneous Endoscopic Approach (ICD-10-PCS; principal; 2017-06-01 11:13)
DX: K81.0 Acute cholecystitis (principal); K81.1 Chronic cholecystitis; K21.9 Gastro-esophageal reflux disease without esophagitis; L93.0 Discoid lupus erythematosus; M06.9 Rheumatoid arthritis, unspecified; F17.210 Nicotine dependence, cigarettes, uncomplicated; Z79.899 Other long term (current) drug therapy
CPT/HCPCS: 00790; 47562; 80053; 83690; 84703; 85025; 86140; 88304; 94150; 96374; 99285; G0378; J0131; J1885; J1956; J2250; J2270; J2405; J2550; J2710; J3010; J7030; J7120

== ENCOUNTER 2017-06-03 02:41 | Inpatient (IN) | payer SELFPAY ==
[2017-06-03] VITALS (8 sets, daily range): BP systolic 110–144; BP diastolic 64–81; PULSE 64–77; RESP 17–20; TEMP 97.2–97.8; O2SAT 95–100
[~2017-06-03] VITALS: Ht 165.1 cm; Wt 59.2 kg
[2017-06-03] MEDS ORDERED: IBUP800T23 PO (02:57)
[2017-06-03] MEDS ORDERED: TYLE325T PO (02:57)
[2017-06-03] MEDS ORDERED: SODIUM CHLOR 0.9% 1000 ML INJ 1,000 ML IV SCH (03:10)
[2017-06-03] MEDS ORDERED: SODIUM CHLORIDE 0.9% FLUSH 10 ML FLUSH IV FLUSH PRN ×2 (03:15→08:15)
[2017-06-03] MEDS ORDERED: ALUMINUM/MAGNESIUM/SIMETH 30 ML CUP PO ONE (03:15)
[2017-06-03] MEDS ORDERED: LIDOCAINE VISCOUS 2% SOLN 15 ML UDC PO ONE (03:15)
[2017-06-03 03:48] LABS: AUTOMATED NEUTROPHIL # 6.7 TH/MM3 (1.8-7.7); BASOPHIL % 0.4 % (0.0-2.0); EOSINOPHIL # 0.1 TH/MM3 (0-0.4); EOSINOPHIL % 0.8 % (0.0-4.0); HEMATOCRIT 38.4 % (35.0-46.0); HEMO FLAGS DIFF FINAL; LYMPH % 15.4 % (9.0-44.0); LYMPHOCYTE # 1.4 TH/MM3 (1.0-4.8); MEAN CELL VOLUME 92.7 FL (80.0-100.0); MEAN CORPUSCULAR HEMOGLOBIN 30.7 PG (27.0-34.0); MEAN CORPUSCULAR HGB CONC 33.1 % (32.0-36.0); MONO % 8.2 % (0.0-8.0); NEUT % 75.2 % (16.0-70.0); PLATELET COUNT 203 TH/MM3 (150-450); RED BLOOD COUNT 4.14 MIL/MM3 (4.00-5.30); RED CELL DISTRIBUTION WIDTH 13.3 % (11.6-17.2); WHITE BLOOD COUNT 8.8 TH/MM3 (4.0-11.0)
[2017-06-03 03:48] LABS: BLOOD, URINE NEG (NEG); GLUCOSE,URINE NEG (NEG); KETONE, URINE NEG (NEG); MUCUS URINE FEW /lpf (OCC); NITRITE,URINE NEG (NEG); PH, URINE 6.5 (5.0-8.5); SQUAMOUS EPITHELIAL CELL URINE 6 /hpf (0-5); URINE COLOR DARK-YELLOW (YELLW/STRAW)
[2017-06-03 03:52] LABS: COMMENT (UR) CULT NOT INDICATED; CULTURE IF INDICATED CULT NOT INDICATED
[2017-06-03 03:55] LABS: ALKALINE PHOSPHATASE 133 U/L (45-117); ALT (GPT) 631 U/L (10-53); ANION GAP 8 MEQ/L (5-15); AST (GOT) 394 U/L (15-37); BICARBONATE 27.3 MEQ/L (21.0-32.0); BLOOD UREA NITROGEN 8 MG/DL (7-18); CHLORIDE 106 MEQ/L (98-107); GLOMERULAR FILTRATION RATE 97 ML/MIN (>89); POTASSIUM 3.6 MEQ/L (3.5-5.1); SODIUM (NA) 141 MEQ/L (136-145); TOTAL BILIRUBIN ADULT 3.2 MG/DL (0.2-1.0)
--- NOTE | 2017-06-03 04:24 | RADRPT ---
EXAM DATE/TIME: 06/03/2017 03:55 [place] COMPARISON: US ABDOMEN - GALLBLADDER, May 31, 2017, 7:35. INDICATIONS : Abdominal pain post cholecystectomy two days ago. ORAL CONTRAST: No oral contrast ingested. RADIATION DOSE: 6.64 CTDIvol (mGy) MEDICAL HISTORY : Gastroesophageal reflux disease. Lupus. SURGICAL HISTORY : Cholecystectomy. ENCOUNTER: Initial ACUITY: 2 days PAIN SCALE: 9/10 LOCATION: Abdomen. TECHNIQUE: Volumetric scanning of the abdomen and pelvis was performed. Using automated exposure control and ad justment of the mA and/or kV according to patient size, radiation dose was kept as low as reasonably achievable to obtain optimal diagnostic quality images. DICOM format image data is available electro nically for review and comparison. FINDINGS: No pleural or pericardial effusions are seen. There is a large amount of free air seen anterior and u pper abdomen with subcutaneous emphysema noted in the right upper quadrant subcutaneous fat and at th e level of the upper leg is in this patient who is status post cholecystectomy. Uterus and right ovar y are unremarkable. 4.2 cm left ovarian cyst. No evidence of bowel obstruction. Spleen, pancreas, adr enal glands, kidneys are unremarkable. Appendix normal. Urinary bladder unremarkable. Atherosclerotic calcifications of the aorta and iliac vessels are noted. Surgical clips are noted in the gallbladder fossa. There are no organized fluid collections or free fluid within the abdomen or pelvis. Osseous structures demonstrate dextroscoliosis of the spine. CONCLUSION: 1. Large amount of free air is noted as above anesthesia and was status post cholecystectomy. 2. No focal fluid collections are seen. 3. Atherosclerosis. Armen Bhandari MD on June 03, 2017 at 4:20 Board Certified Radiologist. This report was verified electronically.
[2017-06-03] MEDS ORDERED: ONDANSETRON HCL 4 MG/2 ML VIAL IV ONE (05:00)
--- NOTE | 2017-06-03 06:13 | PD ---
HPI Chief Complaint: Chest Pain Time Seen by Provider: 03:10 Travel History International Travel<30 days: No Contact w/Intl Traveler<30days: No Traveled to known affect area: No History of Present Illness HPI This is a 47-year-old female who presents to the emergency department 2 days following a cholecystectomy. Patient reports that since the surgery her pain is worsened. She describes it primarily in the epigastrium with a sensation of acid in her chest, constant, worse with eating, associated with some nausea. She also feels a fullness in her abdomen. She feels like the pain that she presented with her gallbladder never really went away. She's been taking Tylenol and ibuprofen. She takes ibuprofen fairly regularly for pain. She tries to avoid other analgesics. She also smokes cigarettes. She takes Pepcid daily. She denies any fevers or chills. PFSH Past Medical History Arthritis: Yes (RA) Autoimmune Disease: Yes (LUPUS) Blood Disorders: No Cancer: No Cardiovascular Problems: No Diminished Hearing: No Endocrine: No Gastrointestinal Disorders: Yes (ACID REFLUX) GERD: Yes Genitourinary: No Immune Disorder: Yes (LUPUS) Implanted Vascular Access Dvce: No Musculoskeletal: Yes (RA) Neurologic: No Psychiatric: No Reproductive: No Respiratory: No ?: Not LMP: 05/21/17 : 5 Para: 4 Miscarriage: 1 Past Surgical History Cholecystectomy: Yes Oral Surgery: Yes (GUM SURGERY) Other Surgery: No Social History Alcohol Use: No Tobacco Use: Yes (4-6 cigarettes per day ) Substance Use: No Allergies-Medications (Allergen,Severity, Reaction): Coded Allergies: No Known Allergies (Verified , 06/03/17) Reported Meds & Prescriptions Reported Meds & Active Scripts Active Reported Ibuprofen 800 Mg Tab 800 Mg PO Q6HR PRN Tylenol (Acetaminophen) 325 Mg Tab 325 Mg PO ONCE Prilosec (Omeprazole Magnesium) 2.5 Mg Pow Vitamin C (Ascorbic Acid) 250 Mg Tab 500 Mg PO DAILY Review of Systems Except as stated in HPI: all other systems reviewed are Neg Physical Exam Narrative GENERAL:Well appearing, no acute distress SKIN: Focused skin assessment warm and dry. HEAD: Atraumatic. Normocephalic. EYES: Pupils equal and round. No injection or drainage. ENT: Moist mucous membranes NECK: Trachea midline. CARDIOVASCULAR: Regular rate and rhythm. No murmur appreciated. RESPIRATORY: Clear to auscultation. Breath sounds equal bilaterally. GASTROINTESTINAL: Abdomen soft, tender to palpation in the right upper quadrant and epigastrium with no rebound or guarding. MUSCULOSKELETAL: No obvious deformities. NEUROLOGICAL: Awake and alert. No obvious cranial nerve deficits. Moving all extremities. PSYCHIATRIC: Appropriate mood and affect; insight and judgment normal. Data Data Last Documented VS Vital Signs Date Time Temp Pulse Resp B/P Pulse Ox O2 Delivery O2 Flow Rate FiO2 06/03/17 03:13 100 Room Air 06/03/17 02:51 97.8 77 20 144/81 Orders Complete Blood Count With Diff (06/03/17 03:10) Comprehensive Metabolic Panel (06/03/17 03:10) Lipase (06/03/17 03:10) Urinalysis - C+S If Indicated (06/03/17 03:10) Iv Access Insert/Monitor (06/03/17 03:10) Ecg Monitoring (06/03/17 03:10) Oximetry (06/03/17 03:10) Sodium Chlor 0.9% 1000 Ml Inj (Ns 1000 M (06/03/17 03:10) Sodium Chloride 0.9% Flush (Ns Flush) (06/03/17 03:15) Electrocardiogram (06/03/17 03:10) Al-Mag Hy-Si 40-40-4 Mg/Ml Liq (Mag-Al P (06/03/17 03:15) Lidocaine 2% Viscous (Xylocaine 2% Visco (06/03/17 03:15) Troponin I (06/03/17 03:10) Ct Abd/Pel W/O Iv Contrast (06/03/17 ) Ondansetron Inj (Zofran Inj) (06/03/17 05:00) Us Abdomen Gallbladder (06/03/17 ) Acetaminophen (Tylenol) (06/03/17 06:15) Labs Laboratory Tests Test 06/03/17 06/03/17 03:15 03:21 White Blood Count 8.8 TH/MM3 Red Blood Count 4.14 MIL/MM3 Hemoglobin 12.7 GM/DL Hematocrit 38.4 % Mean Corpuscular Volume 92.7 FL Mean Corpuscular Hemoglobin 30.7 PG Mean Corpuscular Hemoglobin 33.1 % Concent Red Cell Distribution Width 13.3 % Platelet Count 203 TH/MM3 Mean Platelet Volume 10.1 FL Neutrophils (%) (Auto) 75.2 % Lymphocytes (%) (Auto) 15.4 % Monocytes (%) (Auto) 8.2 % Eosinophils (%) (Auto) 0.8 % Basophils (%) (Auto) 0.4 % Neutrophils # (Auto) 6.7 TH/MM3 Lymphocytes # (Auto) 1.4 TH/MM3 Monocytes # (Auto) 0.7 TH/MM3 Eosinophils # (Auto) 0.1 TH/MM3 Basophils # (Auto) 0.0 TH/MM3 CBC Comment DIFF FINAL Differential Comment Sodium Level 141 MEQ/L Potassium Level 3.6 MEQ/L Chloride Level 106 MEQ/L Carbon Dioxide Level 27.3 MEQ/L Anion Gap 8 MEQ/L Blood Urea Nitrogen 8 MG/DL Creatinine 0.65 MG/DL Estimat Glomerular Filtration 97 ML/MIN Rate Random Glucose 99 MG/DL Calcium Level 8.1 MG/DL Total Bilirubin 3.2 MG/DL Aspartate Amino Transf 394 U/L (AST/SGOT) Alanine Aminotransferase 631 U/L (ALT/SGPT) Alkaline Phosphatase 133 U/L Troponin I LESS THAN 0.02 NG/ML Total Protein 6.3 GM/DL Albumin 3.2 GM/DL Lipase 246 U/L Urine Color DARK-YELLOW Urine Turbidity HAZY Urine pH 6.5 Urine Specific [place] 1.016 Urine Protein NEG mg/dL Urine Glucose (UA) NEG mg/dL Urine Ketones NEG mg/dL Urine Occult Blood NEG Urine Nitrite NEG Urine Bilirubin MOD Urine Urobilinogen 2.0 MG/DL Urine Leukocyte Esterase NEG Urine RBC LESS THAN 1 /hpf Urine WBC 1 /hpf Urine Squamous Epithelial 6 /hpf Cells Urine Mucus FEW /lpf Microscopic Urinalysis Comment CULT NOT INDICATED MDM Medical Decision Making Medical Screen Exam Complete: Yes Emergency Medical Condition: Yes Interpretation(s) Afebrile, no tachycardia, mild hypertension No leukocytosis Total bilirubin is 3.2 Transaminitis Lipase is normal Urinalysis is negative for infection Last 24 hours Impressions Abdomen/Pelvis CT 06/03/17 0000 Signed Impressions: Service Date/Time: Saturday, June 03, 2017 03:55 - CONCLUSION: 1. Large amount of free air is noted as above anesthesia and was status post cholecystectomy. 2. No focal fluid collections are seen. 3. Atherosclerosis. Armen Bhandari MD Differential Diagnosis Choledocholithiasis, cholangitis, bile leak, gastritis, peptic ulcer disease Narrative Course This is a 47-year-old female who presents to the emergency department with epigastric discomfort following up cholecystectomy. She did vomit once in the emergency department. She is placed in a monitor and an IV was established. Labs were obtained which demonstrate no elevated total bilirubin and a transaminitis. CT was obtained which demonstrates free air likely postprocedural with no other evidence of bile leak or surgical complication. I spoke to Dr. Miranda who felt that the total bilirubin elevation was abnormally high and he recommended we get an ultrasound to evaluate the patient's common bile duct for possible choledocholithiasis. Ultrasound was ordered and will be followed up by oncoming physician. I think if this is reassuring the patient's symptoms may be related to gastritis or peptic ulcer disease and she should be discharged on an H2 saima and Carafate with a referral to gastroenterology. Hanna Simon MD Jun 03, 2017 06:13
[2017-06-03] MEDS ORDERED: ACETAMINOPHEN 500 MG CPLT PO ONE (06:15)
--- NOTE | 2017-06-03 06:41 | RADRPT ---
EXAM DATE/TIME: 06/03/2017 06:14 [facility] COMPARISON: US ABDOMEN - GALLBLADDER, May 31, 2017, 7:35. INDICATIONS : Right upper quadrant pain. MEDICAL HISTORY : Gastroesophageal reflux disease. Lupus. RA. SURGICAL HISTORY : Cholecystectomy. Gum surgery. ENCOUNTER: Subsequent ACUITY: 4-6 days PAIN SCORE: 6/10 LOCATION: Right upper quadrant MEASUREMENTS: LIVER: 16.3 cm length COMMON DUCT: 4 mm RIGHT KIDNEY: 10.8 x 5.2 x 4.5 cm FINDINGS: LIVER: Normal echotexture without focal lesion or ductal dilatation. COMMON DUCT: No intraluminal mass or stone visualized. GALLBLADDER: Cholecystectomy. PANCREAS: The visualized portions are within normal limits. RIGHT KIDNEY: No evidence of hydronephrosis, stone, or mass. CONCLUSION: Normal examination. Armen Bhandari MD on June 03, 2017 at 6:38 Board Certified Radiologist. This report was verified electronically.
[2017-06-03] MEDS ORDERED: ZANT150T2 PO (06:59)
[2017-06-03] MEDS ORDERED: CARA1TAB6 PO (06:59)
--- NOTE | 2017-06-03 07:00 | PD ---
Data Data Last Documented VS Vital Signs Date Time Temp Pulse Resp B/P Pulse Ox O2 Delivery O2 Flow Rate FiO2 06/03/17 03:13 100 Room Air 06/03/17 02:51 97.8 77 20 144/81 Orders Complete Blood Count With Diff (06/03/17 03:10) Comprehensive Metabolic Panel (06/03/17 03:10) Lipase (06/03/17 03:10) Urinalysis - C+S If Indicated (06/03/17 03:10) Iv Access Insert/Monitor (06/03/17 03:10) Ecg Monitoring (06/03/17 03:10) Oximetry (06/03/17 03:10) Sodium Chlor 0.9% 1000 Ml Inj (Ns 1000 M (06/03/17 03:10) Sodium Chloride 0.9% Flush (Ns Flush) (06/03/17 03:15) Electrocardiogram (06/03/17 03:10) Al-Mag Hy-Si 40-40-4 Mg/Ml Liq (Mag-Al P (06/03/17 03:15) Lidocaine 2% Viscous (Xylocaine 2% Visco (06/03/17 03:15) Troponin I (06/03/17 03:10) Ct Abd/Pel W/O Iv Contrast (06/03/17 ) Ondansetron Inj (Zofran Inj) (06/03/17 05:00) Us Abdomen Gallbladder (06/03/17 ) Acetaminophen (Tylenol) (06/03/17 06:15) Labs Laboratory Tests Test 06/03/17 06/03/17 03:15 03:21 White Blood Count 8.8 TH/MM3 Red Blood Count 4.14 MIL/MM3 Hemoglobin 12.7 GM/DL Hematocrit 38.4 % Mean Corpuscular Volume 92.7 FL Mean Corpuscular Hemoglobin 30.7 PG Mean Corpuscular Hemoglobin 33.1 % Concent Red Cell Distribution Width 13.3 % Platelet Count 203 TH/MM3 Mean Platelet Volume 10.1 FL Neutrophils (%) (Auto) 75.2 % Lymphocytes (%) (Auto) 15.4 % Monocytes (%) (Auto) 8.2 % Eosinophils (%) (Auto) 0.8 % Basophils (%) (Auto) 0.4 % Neutrophils # (Auto) 6.7 TH/MM3 Lymphocytes # (Auto) 1.4 TH/MM3 Monocytes # (Auto) 0.7 TH/MM3 Eosinophils # (Auto) 0.1 TH/MM3 Basophils # (Auto) 0.0 TH/MM3 CBC Comment DIFF FINAL Differential Comment Sodium Level 141 MEQ/L Potassium Level 3.6 MEQ/L Chloride Level 106 MEQ/L Carbon Dioxide Level 27.3 MEQ/L Anion Gap 8 MEQ/L Blood Urea Nitrogen 8 MG/DL Creatinine 0.65 MG/DL Estimat Glomerular Filtration 97 ML/MIN Rate Random Glucose 99 MG/DL Calcium Level 8.1 MG/DL Total Bilirubin 3.2 MG/DL Aspartate Amino Transf 394 U/L (AST/SGOT) Alanine Aminotransferase 631 U/L (ALT/SGPT) Alkaline Phosphatase 133 U/L Troponin I LESS THAN 0.02 NG/ML Total Protein 6.3 GM/DL Albumin 3.2 GM/DL Lipase 246 U/L Urine Color DARK-YELLOW Urine Turbidity HAZY Urine pH 6.5 Urine Specific [place] 1.016 Urine Protein NEG mg/dL Urine Glucose (UA) NEG mg/dL Urine Ketones NEG mg/dL Urine Occult Blood NEG Urine Nitrite NEG Urine Bilirubin MOD Urine Urobilinogen 2.0 MG/DL Urine Leukocyte Esterase NEG Urine RBC LESS THAN 1 /hpf Urine WBC 1 /hpf Urine Squamous Epithelial 6 /hpf Cells Urine Mucus FEW /lpf Microscopic Urinalysis Comment CULT NOT INDICATED MDM Supervised Visit with RICKY: No Narrative Course Ultrasound demonstrates a normal common bile duct. I think the patient's biliary labs elevation is likely normal in the setting of recent cholecystectomy. We will touch base with Dr. Miranda and see if he wants to evaluate the patient. If he doesn't I think it's reasonable for the patient to be discharged home with an antacid and to follow-up with gastroenterology Diagnosis Primary Impression: Epigastric abdominal pain Patient Instructions: General Instructions Additional Instruction: If you develop severe or worsening abdominal pain, fever>100.4, persistent vomiting or inability to eat or drink return to the emergency department immediately. Follow-up with a oil and gas field technician as soon as possible. Med/Other Pt SpecificInfo: Prescription(s) given Scripts Sucralfate (Carafate)1 Gm Tab1 Gm PO TID #90 TAB Ref 0 On empty stomach Prov:Hanna Simon MD 06/03/17 Ranitidine (Zantac)150 Mg [id number] Mg PO BID #60 TAB Ref 0 Prov:Hanna Simon MD 06/03/17 Disposition: 01 DISCHARGE HOME Condition: Stable Hanna Simon MD Jun 03, 2017 07:00
[2017-06-03] MEDS: SODIUM CHLOR 0.9% 1000 ML INJ 1,000 ML IV SCH ×3 (08:03→21:41)
[2017-06-03] MEDS ORDERED: PRIL2.5P PO (08:29)
--- NOTE | 2017-06-03 08:30 | PD ---
Physical Exam Date Seen by Provider: Jun 03, 2017 Narrative Care was assumed from Dr. Simon at 7 AM pending a consultation with surgery. Data Data Last Documented VS Vital Signs Date Time Temp Pulse Resp B/P Pulse Ox O2 Delivery O2 Flow Rate FiO2 06/03/17 07:20 65 18 131/74 95 Room Air 06/03/17 02:51 97.8 Orders Complete Blood Count With Diff (06/03/17 03:10) Comprehensive Metabolic Panel (06/03/17 03:10) Lipase (06/03/17 03:10) Urinalysis - C+S If Indicated (06/03/17 03:10) Iv Access Insert/Monitor (06/03/17 03:10) Ecg Monitoring (06/03/17 03:10) Oximetry (06/03/17 03:10) Sodium Chlor 0.9% 1000 Ml Inj (Ns 1000 M (06/03/17 03:10) Sodium Chloride 0.9% Flush (Ns Flush) (06/03/17 03:15) Electrocardiogram (06/03/17 03:10) Al-Mag Hy-Si 40-40-4 Mg/Ml Liq (Mag-Al P (06/03/17 03:15) Lidocaine 2% Viscous (Xylocaine 2% Visco (06/03/17 03:15) Troponin I (06/03/17 03:10) Ct Abd/Pel W/O Iv Contrast (06/03/17 ) Ondansetron Inj (Zofran Inj) (06/03/17 05:00) Us Abdomen Gallbladder (06/03/17 ) Acetaminophen (Tylenol) (06/03/17 06:15) Consult Gastroenterology (06/03/17 ) Place In Observation (06/03/17 ) Code Status (06/03/17 08:03) Vital Signs (Adult) Q4H (06/03/17 08:03) Activity Oob Ad [place] (06/03/17 08:03) Sodium Chlor 0.9% 1000 Ml Inj (Ns 1000 M (06/03/17 08:03) Sodium Chloride 0.9% Flush (Ns Flush) (06/03/17 09:00) Sodium Chloride 0.9% Flush (Ns Flush) (06/03/17 08:15) Pantoprazole Inj (Protonix Inj) (06/03/17 09:00) Scd Bilateral/Knee High PAGE.QSHIFT (06/03/17 08:03) Scd / Isma / Foot Pump 08,20 (06/03/17 08:03) Diet Npo (06/03/17 Breakfast) Consult Arielle Nfs (06/03/17 ) Labs Laboratory Tests Test 06/03/17 06/03/17 03:15 03:21 White Blood Count 8.8 TH/MM3 Red Blood Count 4.14 MIL/MM3 Hemoglobin 12.7 GM/DL Hematocrit 38.4 % Mean Corpuscular Volume 92.7 FL Mean Corpuscular Hemoglobin 30.7 PG Mean Corpuscular Hemoglobin 33.1 % Concent Red Cell Distribution Width 13.3 % Platelet Count 203 TH/MM3 Mean Platelet Volume 10.1 FL Neutrophils (%) (Auto) 75.2 % Lymphocytes (%) (Auto) 15.4 % Monocytes (%) (Auto) 8.2 % Eosinophils (%) (Auto) 0.8 % Basophils (%) (Auto) 0.4 % Neutrophils # (Auto) 6.7 TH/MM3 Lymphocytes # (Auto) 1.4 TH/MM3 Monocytes # (Auto) 0.7 TH/MM3 Eosinophils # (Auto) 0.1 TH/MM3 Basophils # (Auto) 0.0 TH/MM3 CBC Comment DIFF FINAL Differential Comment Sodium Level 141 MEQ/L Potassium Level 3.6 MEQ/L Chloride Level 106 MEQ/L Carbon Dioxide Level 27.3 MEQ/L Anion Gap 8 MEQ/L Blood Urea Nitrogen 8 MG/DL Creatinine 0.65 MG/DL Estimat Glomerular Filtration 97 ML/MIN Rate Random Glucose 99 MG/DL Calcium Level 8.1 MG/DL Total Bilirubin 3.2 MG/DL Aspartate Amino Transf 394 U/L (AST/SGOT) Alanine Aminotransferase 631 U/L (ALT/SGPT) Alkaline Phosphatase 133 U/L Troponin I LESS THAN 0.02 NG/ML Total Protein 6.3 GM/DL Albumin 3.2 GM/DL Lipase 246 U/L Urine Color DARK-YELLOW Urine Turbidity HAZY Urine pH 6.5 Urine Specific [place] 1.016 Urine Protein NEG mg/dL Urine Glucose (UA) NEG mg/dL Urine Ketones NEG mg/dL Urine Occult Blood NEG Urine Nitrite NEG Urine Bilirubin MOD Urine Urobilinogen 2.0 MG/DL Urine Leukocyte Esterase NEG Urine RBC LESS THAN 1 /hpf Urine WBC 1 /hpf Urine Squamous Epithelial 6 /hpf Cells Urine Mucus FEW /lpf Microscopic Urinalysis Comment CULT NOT INDICATED MDM Supervised Visit with RICKY: No Narrative Course Dr. Simon spoke with Dr. Miranda. Dr. Miranda told Dr. Simon that he was going to call Dr. Jose, who did the surgery. It has now been about an hour and a half and we have not heard from Dr. Jose. The patient appears stable for discharge and will like to go home. Her symptoms sound like gastritis/GERD. The patient states that she is currently taking Prilosec, one per day. I will add Zantac and Carafate for the next 2 weeks. The patient has also been instructed to stop ibuprofen. She is to follow-up with her primary care provider in about 2 weeks. Diagnosis Primary Impression: Epigastric abdominal pain Patient Instructions: Epigastric Pain (ED), General Instructions Additional Instruction: If you develop severe or worsening abdominal pain, fever>100.4, persistent vomiting or inability to eat or drink return to the emergency department immediately. Follow-up with a data center project manager as soon as possible. Stopped taking ibuprofen. Continue taking Prilosec. Med/Other Pt SpecificInfo: Med Stopped Scripts Omeprazole Magnesium (Prilosec)2.5 Mg Pow20 Mg PO DAILY 30 Days Prov:Lizzeth Marvin MD 06/03/17 Sucralfate (Carafate)1 Gm Tab1 Gm PO TID #90 TAB Ref 0 On empty stomach Prov:Hanna Simon MD 06/03/17 Ranitidine (Zantac)150 Mg [id number] Mg PO BID #60 TAB Ref 0 Prov:Hanna Simon MD 06/03/17 Disposition: 01 DISCHARGE HOME Condition: Stable Lizzeth Marvin MD Jun 03, 2017 08:29
[2017-06-03] MEDS ORDERED: ZOFR8TAB4 SL (08:43)
[2017-06-03] MEDS: SODIUM CHLORIDE 0.9% FLUSH 10 ML FLUSH IV FLUSH SCH ×2 (09:00→21:00)
[2017-06-03] MEDS: PANTOPRAZOLE SODIUM 40 MG VIAL IV SCH (11:26)
--- NOTE | 2017-06-03 12:23 | PD.CONS ---
HPI History of Present Illness This is a 47 year old female who has been having intermittent abdominal pain radiating to her back since December. She was seen in the ER and told that she had gastritis and was being treated with omeprazole, carafate, and zantac. She has also been taking Gallstonex-10% caffeoylquinic acid with peppermint, turmeric and dandelion root. She has cut out red meat, fried foods, greasy foods. She has continued to have attacks since that time- severe stabbing/ pressure pain that radiates straight through to her back. She ate [employer]- chicken, green beans, and baked potato around 6:30pm and she had a severe attack at 9 that would not go away and therefore she came to the ER. She was evaluated by Dr. Jose and underwent an US which revealed cholelithiasis, gallbladder distention, gallbladder wall thickening, and a small amount of pericholecystic fluid and she subsequently underwent a laparoscopic cholecystectomy on 06/01/17. LFTs on 06/01/17 revealed 1.2, AST 224, ALT 230, Alk Phosph 103. She reports that she felt well after her surgery and wanted to go home. She did well until 2pm the next day, when she ate some pretzel sticks and she started having some reflux/epigastric discomfort. Yesterday evening, she tried to eat some chicken and dumplings and green beans and developed the same severe pain with associated bloating and reflux. She also had some associated nausea/vomiting Tuesday night, but states this has improved. She came to the ER for evaluation and LFTs were T. Bili 3.2, AST 394, ALT 631, Alk Phosph 133. Abdomen/Pelvis CT (06/03/17)-----> 1. Large amount of free air is noted as above anesthesia and was status post cholecystectomy. 2. No focal fluid collections are seen. 3. Atherosclerosis. Gall Bladder Ultrasound ()-----> Normal examination. GI has been consulted by Dr. Jose for biliary obstruction, suspected retained stone vs. sludge in cbd and for further evaluation and treatment with ERCP. (Swathi Ramon) PFSH Past Medical History Cholelithiasis GERD Lupus Rheumatoid arthritis Hx rheumatic fever as Past Surgical History Cholecystectomy Gum grafting (Swathi Ramon) Coded Allergies: No Known Allergies (Verified , 06/03/17) Medications Allergies Coded Allergies Type Severity Reaction Last Updated Verified No Known Allergies 06/03/17 Yes Active Scripts Medications Dose Route/Sig Days Date Category Dose Instructions Zofran Odt (Ondansetron Odt) 8 Mg Tab 8 Mg SL Q8H PRN 06/03/17 Rx Prilosec (Omeprazole Magnesium) 2.5 Mg Pow 20 Mg PO DAILY 30 06/03/17 Rx Carafate (Sucralfate) 1 Gm Tab 1 Gm PO TID 06/03/17 Rx On empty stomach Zantac (Ranitidine HCl) 150 Mg Tab 150 Mg PO BID 06/03/17 Rx Tylenol (Acetaminophen) 325 Mg Tab 325 Mg PO ONCE 06/03/17 Reported Vitamin C (Ascorbic Acid) 250 Mg Tab 500 Mg PO DAILY 05/31/17 Reported Gallstonex-10% caffeoylquinic acid with peppermint, turmeric and dandelion root. Family History Mother DM MGM leukemia Father killed in [place], epilepsy Social History 5-6 cigarettes per day No etoh No illicit drug use (Swathi Ramon) Review of Systems Constitutional: COMPLAINS OF: Fatigue, Change in appetite, DENIES: Fever, Weight loss, Chills Respiratory: DENIES: Cough Cardiovascular: DENIES: Chest pain Gastrointestinal: COMPLAINS OF: Abdominal pain, Nausea, Vomiting, Swelling of Abdomen, Heartburn, DENIES: Black stools, Bloody stools, Constipation, Diarrhea Musculoskeletal: COMPLAINS OF: Joint pain, Back pain Neurologic: DENIES: Headache Psychiatric: DENIES: Confusion (Swathi Ramon) GI Exam Vitals I&O Vital Signs Date Time Temp Pulse Resp B/P Pulse Ox O2 Delivery O2 Flow Rate FiO2 06/03/17 10:30 70 18 135/80 98 Room Air 06/03/17 07:20 65 18 131/74 95 Room Air 06/03/17 07:20 65 16 99 Room Air 06/03/17 07:09 18 06/03/17 03:13 100 Room Air 06/03/17 02:51 97.8 77 20 144/81 99 06/03/17 02:44 97.7 71 18 143/73 98 Room Air Imaging Last Impressions Gall Bladder Ultrasound 06/03/17 0000 Signed Impressions: Service Date/Time: Saturday, June 03, 2017 06:14 - CONCLUSION: Normal examination. Armen Bhandari MD Abdomen/Pelvis CT 06/03/17 0000 Signed Impressions: Service Date/Time: Saturday, June 03, 2017 03:55 - CONCLUSION: 1. Large amount of free air is noted as above anesthesia and was status post cholecystectomy. 2. No focal fluid collections are seen. 3. Atherosclerosis. Armen Bhandari MD Laboratory Test 06/03/17 06/03/17 03:15 03:21 White Blood Count 8.8 TH/MM3 Red Blood Count 4.14 MIL/MM3 Hemoglobin 12.7 GM/DL Hematocrit 38.4 % Mean Corpuscular Volume 92.7 FL Mean Corpuscular Hemoglobin 30.7 PG Mean Corpuscular Hemoglobin 33.1 % Concent Red Cell Distribution Width 13.3 % Platelet Count 203 TH/MM3 Mean Platelet Volume 10.1 FL Neutrophils (%) (Auto) 75.2 % Lymphocytes (%) (Auto) 15.4 % Monocytes (%) (Auto) 8.2 % Eosinophils (%) (Auto) 0.8 % Basophils (%) (Auto) 0.4 % Neutrophils # (Auto) 6.7 TH/MM3 Lymphocytes # (Auto) 1.4 TH/MM3 Monocytes # (Auto) 0.7 TH/MM3 Eosinophils # (Auto) 0.1 TH/MM3 Basophils # (Auto) 0.0 TH/MM3 CBC Comment DIFF FINAL Differential Comment Sodium Level 141 MEQ/L Potassium Level 3.6 MEQ/L Chloride Level 106 MEQ/L Carbon Dioxide Level 27.3 MEQ/L Anion Gap 8 MEQ/L Blood Urea Nitrogen 8 MG/DL Creatinine 0.65 MG/DL Estimat Glomerular Filtration 97 ML/MIN Rate Random Glucose 99 MG/DL Calcium Level 8.1 MG/DL Total Bilirubin 3.2 MG/DL Aspartate Amino Transf 394 U/L (AST/SGOT) Alanine Aminotransferase 631 U/L (ALT/SGPT) Alkaline Phosphatase 133 U/L Troponin I LESS THAN 0.02 NG/ML Total Protein 6.3 GM/DL Albumin 3.2 GM/DL Lipase 246 U/L Urine Color DARK-YELLOW Urine Turbidity HAZY Urine pH 6.5 Urine Specific [place] 1.016 Urine Protein NEG mg/dL Urine Glucose (UA) NEG mg/dL Urine Ketones NEG mg/dL Urine Occult Blood NEG Urine Nitrite NEG Urine Bilirubin MOD Urine Urobilinogen 2.0 MG/DL Urine Leukocyte Esterase NEG Urine RBC LESS THAN 1 /hpf Urine WBC 1 /hpf Urine Squamous Epithelial 6 /hpf Cells Urine Mucus FEW /lpf Microscopic Urinalysis Comment CULT NOT INDICATED Physical Examination HEENT: Normocephalic; atraumatic; no jaundice. CHEST: CTA CARDIAC: RRR ABDOMEN: Soft, nondistended, epigastric tenderness; no hepatosplenomegaly; bowel sounds are present in all four quadrants. EXTREMITIES: No clubbing, cyanosis, or edema. SKIN: Normal; no rash; no jaundice. FUEL CELL ENGINEER: No focal deficits; alert and oriented times three. (Swathi Ramon) Assessment and Plan Plan ASSESSMENT: - Abdominal pain with elevated LFTs in obstructive pattern. Intermittent abdominal pain radiating to her back since December. She has had multiple ER visits and told that it was gastritis secondary to her Ibuprofen use and has been treated with omeprazole, carafate, and zantac. She has also been taking Gallstonex-10% caffeoylquinic acid with peppermint, turmeric and dandelion root. She has cut out red meat, fried foods, greasy foods, but has continued to have attacks. She was seen after an attack and found to have abnormal US with cholelithiasis, gallbladder distention, gallbladder wall thickening, and a small amount of pericholecystic fluid and she subsequently underwent a laparoscopic cholecystectomy on 06/01/17. LFTs on 06/01/17 revealed 1.2, AST 224, ALT 230, Alk Phosph 103. She improved but her symptoms returned. LFTs were T. Bili 3.2, AST 394, ALT 631, Alk Phosph 133. Abdomen/Pelvis CT (06/03/17)-----> 1. Large amount of free air is noted as above anesthesia and was status post cholecystectomy. 2. No focal fluid collections are seen. 3. Atherosclerosis. Gall Bladder Ultrasound (06/03/17)-----> Normal examination. GI has been consulted by Dr. Jose for biliary obstruction, suspected retained stone vs. sludge in cbd and for further evaluation and treatment with ERCP. No WBC. No fever. ? suspected retained stone vs. debris vs. sludge. GS following, will plan for ERCP with sphincterotomy, possible stent placement. - Hx cholelithiasis, s/p cholecystectomy - Lupus, RA per attending PLAN: - Plan for ercp with possible sphincterotomy, possible stent placement - Obtain consents - NPO - IVF - CBC, CMP i am - Supportive care - Further recommendations to follow based on results of above - Pt seen and examined by Dr. Schwarz and myself and this note is written on his behalf (Swathi Ramon) Physician Comments agree with note and plan, patient was seen and examined, D/W Dr. Jose plan ERCP today for high possibility of CBD stone. proceduer, and complications were explained to [patient (Yemi Youssef MD) Swathi Ramon Jun 03, 2017 12:23 Yemi Youssef MD Jun 03, 2017 15:20
[2017-06-03] MEDS ORDERED: ACETAMINOPHEN/HYDROcodone 325 MG/5 MG TAB PO PRN (13:30)
[2017-06-03] MEDS ORDERED: KETOROLAC TROMETHAMINE 30 MG/ML (IVP) VIAL IV PUSH PRN (13:30)
[2017-06-03] MEDS ORDERED: MORPHINE SULFATE 4 MG/ML INJ IV PUSH PRN (13:30)
--- NOTE | 2017-06-03 13:36 | MH ---
cc: JOSLYN SCHULTZ M.D. DATE OF ADMISSION: 06/03/2017 REASON FOR ADMISSION Abdominal pain status post laparoscopic cholecystectomy HISTORY OF PRESENT ILLNESS Ms. Blanchard is a very pleasant 47-year-old female who underwent laparoscopic cholecystectomy by myself on 06/01/2017. She had presented with acute cholecystitis. At that time she was found to have minimal elevation of her LFTs and underwent an uneventful laparoscopic cholecystectomy. She states that over the last few days her abdominal pain has persisted. She states the pain feels exactly like it did before she had her gallbladder removed. She came to the emergency department where she was seen and evaluated. She was noted to have increased LFTs and she underwent further work-up. She had a CT scan the abdomen and pelvis which did not show any free fluid or any other abnormalities. It did show some air which was likely postoperative from the laparoscopic procedure. The patient also had an ultrasound which did not show any free fluid consistent with a bile leak. She was noted to have a common bile duct of 4 mm. No obvious stone was visualized. The patient reports nausea, vomiting and abdominal pain for the last 48 hours. She was seen in the ER and surgical consultation was requested and we came to evaluate her immediately. I recommended admission to the hospital for an ERCP as she likely has a retained common bile duct stone. PAST MEDICAL HISTORY 1. Lupus. 2. Rheumatic fever. PAST SURGICAL HISTORY She had a laparoscopic cholecystectomy 2 days ago. She also had surgery on her gums MEDICATIONS 1. Prilosec. 2. Vitamin C. ALLERGIES No known drug allergies. SOCIAL HISTORY She does not drink. She occasionally smokes cigarettes. She lives locally here with her and cares for her grandkids during the summer. FAMILY HISTORY Noncontributory. PHYSICAL EXAMINATION VITAL SIGNS: Temperature 98, pulse 70, blood pressure 130/50, respiratory rate 20. GENERAL: A pleasant middle-aged female seen in the emergency department in no apparent stress. HEENT: Pupils equal and reactive to light. Sclera are white. No obvious jaundice. NECK: Supple. No masses. LUNGS: Clear to auscultation bilaterally. HEART: S1, S2. No murmur. ABDOMEN: Soft. Tender in the epigastric region. No rebound or guarding. Surgical incisions healing well with Steri-Strips in place. NEUROLOGIC: She is alert and oriented x3. EXTREMITIES: Free range of motion x4. LABORATORY White blood cell count 8, hemoglobin 12, platelet count 203. Electrolytes are within normal limits. LFTs: Bilirubin 3.2, AST 394, ALT 631, alkaline phos 133. Lipase is normal at 246. IMAGING Please see HPI. ASSESSMENT Elevated bilirubin status post laparoscopic cholecystectomy, most likely secondary to retained common bile duct stone. PLAN At this point I have discussed the case with Dr. Yemi Youssef and he agrees with the assessment. He is planning an ERCP for this afternoon for sphincterotomy and common bile duct exploration. I explained all of this to the patient and she has complete understanding. Will await Dr. Youssef's procedure for the final diagnosis. The patient will be admitted for observation, IV hydration as she has had nausea and vomiting since surgery. MD DANI Soto/ESTER /1:23 PM /1:32 PM
[2017-06-03] MEDS ORDERED: IOHEXOL 300 MG/ML 50 ML BTL (for RAD DIAG) ONE (14:54)
[2017-06-03] MEDS ORDERED: PROPOFOL 200 MG/20 ML AMP IV PUSH ONE (15:15)
--- NOTE | 2017-06-03 15:45 | RADRPT ---
EXAM DATE/TIME: 06/03/2017 14:56 [facility] COMPARISON: No previous studies available for comparison. INDICATIONS : Evaluation for obstruction. FLUORO TIME: 1.3 minutes IMAGE COUNT: 3 CONTRAST: Instilled by Ordering Physician MEDICAL HISTORY : Gastroesophageal reflux disease. SURGICAL HISTORY : Cholecystectomy. ENCOUNTER: Initial ACUITY: 1 day PAIN SCORE: Non-responsive. LOCATION: Bilateral abdomen. FINDINGS: An ERCP was performed by the ordering physician. The images demonstrate visualization of the intrahepatic and common bile duct with a wire in place. CONCLUSION: ERCP as above. Yumiko Graves MD on June 03, 2017 at 15:42 Board Certified Radiologist. This report was verified electronically.
[2017-06-03] MEDS ORDERED: DO NOT ADM ANY ANTICOAGULANT DRUGS PRN (16:00)
--- NOTE | 2017-06-03 22:31 | MR ---
cc: DANIS GARCIA DATE: 06/03/2017. DATE OF : 1970. REFERRING PHYSICIAN: . PROCEDURE PERFORMED: ERCP with sphincterotomy, stone removal by balloon and biopsy of the gastritis. INDICATIONS FOR THE PROCEDURE: This is a 47-year-old lady who is status post laparoscopic cholecystectomy three days ago. The patient came back complaining of abdominal discomfort in the midepigastric area down to her back and was found to have elevated liver function tests. Her total bilirubin went up from 0.3 to 3.1 and there was possible retained stone. DESCRIPTION OF THE PROCEDURE IN DETAIL: After informing the patient about the procedure and complications, consent was signed. The patient was placed on her abdomen after intubation and sedation by anesthesia. The scope was placed in the mouth and advanced under video guidance to the second portion of the duodenum. The ampulla was identified. Cannulation was achieved without any difficulty from the first pass. Sphincterotomy was done. Cholangiogram showed distal filling defect. Sweeping the duct revealed one small stone with significant bile flow after that. At the end of the case, occluded cholangiogram was negative for any filling defect with easy emptying of the common bile duct. The scope drawn back to the stomach, which was inspected. There was gastritis in the antrum. Biopsy was done and then the scope was drawn back without immediate complication. FINDINGS: 1. The esophagus was normal. 2. The stomach had mild gastritis. Biopsy was done. 3. The pancreatic duct was not seen. 4. The ampulla was normal. 5. The common bile duct had filling defect at the distal duct. 6. Status post sphincterotomy and sweeping of the duct with stone removal. RECOMMENDATIONS: 1. No NSAIDS. 2. NPO until the morning. 3. Liver function tests in the morning. 4. Follow up biopsy. 5. Protonix 40 milligrams daily. MD CARISSA Marie/MARCELLO /3:23 PM /10:28 PM
[2017-06-04 00:35] VITALS: BP 101/54; PULSE 60; RESP 17; TEMP 97; O2SAT 97
[2017-06-04 04:35] VITALS: BP 126/69; PULSE 75; RESP 17; TEMP 97.9; O2SAT 97
[2017-06-04 06:50] LABS: AUTOMATED NEUTROPHIL # 8.9 TH/MM3 (1.8-7.7); BASOPHIL % 0.3 % (0.0-2.0); EOSINOPHIL % 0.1 % (0.0-4.0); HEMATOCRIT 36.6 % (35.0-46.0); HEMO FLAGS DIFF FINAL; LYMPH % 12.1 % (9.0-44.0); LYMPHOCYTE # 1.3 TH/MM3 (1.0-4.8); MEAN CELL VOLUME 94.7 FL (80.0-100.0); MEAN CORPUSCULAR HEMOGLOBIN 31.8 PG (27.0-34.0); MEAN CORPUSCULAR HGB CONC 33.5 % (32.0-36.0); MONO % 5.8 % (0.0-8.0); NEUT % 81.7 % (16.0-70.0); PLATELET COUNT 198 TH/MM3 (150-450); RED BLOOD COUNT 3.86 MIL/MM3 (4.00-5.30); RED CELL DISTRIBUTION WIDTH 13.6 % (11.6-17.2); WHITE BLOOD COUNT 10.9 TH/MM3 (4.0-11.0)
[2017-06-04 07:02] LABS: ALKALINE PHOSPHATASE 138 U/L (45-117); ALT (GPT) 355 U/L (10-53); ANION GAP 8 MEQ/L (5-15); AST (GOT) 109 U/L (15-37); BLOOD UREA NITROGEN 12 MG/DL (7-18); CHLORIDE 108 MEQ/L (98-107); GLOMERULAR FILTRATION RATE 123 ML/MIN (>89); POTASSIUM 4.1 MEQ/L (3.5-5.1); SODIUM (NA) 140 MEQ/L (136-145); TOTAL BILIRUBIN ADULT 1.6 MG/DL (0.2-1.0)
[2017-06-04 08:00] VITALS: BP 108/60; PULSE 67; RESP 20; TEMP 96.4; O2SAT 99
[2017-06-04] MEDS: SODIUM CHLOR 0.9% 1000 ML INJ 1,000 ML IV SCH (08:03)
[2017-06-04] MEDS: PANTOPRAZOLE SODIUM 40 MG VIAL IV SCH (09:40)
[2017-06-04] MEDS: SODIUM CHLORIDE 0.9% FLUSH 10 ML FLUSH IV FLUSH SCH (09:46)
--- NOTE | 2017-06-04 10:54 | EKG ---
Date Performed: 06/03/2017 Time Performed: 02:53:56 PTAGE: 47 years EKG: Sinus rhythm NORMAL ECG NO PREVIOUS TRACING DOCTOR: Kamar Ross Interpretating Date/Time 06/04/2017 10:51:47
== END 2017-06-04 12:08 | disposition home or self-care (01) | DRG 395 ==
LOC: NEPC 02:41 → NEDA 10:31 → NEPC 10:53 → N06B 16:04
PROVIDERS: ADMIT Surgery Trauma Surgery; ATTEND Surgery Trauma Surgery
PROC: 0FC98ZZ Extirpation of Matter from Common Bile Duct, Via Natural or Artificial Opening Endoscopic (ICD-10-PCS; principal; 2017-06-03 14:15)
PROC: 0DB68ZX Excision of Stomach, Via Natural or Artificial Opening Endoscopic, Diagnostic (ICD-10-PCS; 2017-06-03 14:15)
DX: K91.86 Retained cholelithiasis following cholecystectomy (principal); M32.9 Systemic lupus erythematosus, unspecified; Y83.8 Other surgical procedures as the cause of abnormal reaction of the patient, or of later complication, without mention of misadventure at the time of the procedure; F17.210 Nicotine dependence, cigarettes, uncomplicated; K21.9 Gastro-esophageal reflux disease without esophagitis; M06.9 Rheumatoid arthritis, unspecified; K29.70 Gastritis, unspecified, without bleeding
CPT/HCPCS: 74176; 74330; 76705; 80053; 81001; 83690; 84484; 85025; 88305; 88312; 93005; C1769; C9113; J1885; J2405; J3010; J7030; Q9967